=== PATIENT | female | born 1940 | race Caucasian/White ===

== ENCOUNTER 2018-03-25 12:56 | Inpatient (IN) | payer MEDICARE ==
[2018-03-25] MEDS: NORCO 7.5/325 MG TAB PO PRN (16:47)
[2018-03-25] MEDS: XARELTO 10 MG TABLET PO SCH (18:23)
[2018-03-25] MEDS: KEFLEX 500 MG PO SCH (18:23)
[2018-03-25] MEDS: Atrovent 0.5MG NEBULE IH SCH (19:30)
[2018-03-25] MEDS: Oxy-IR 5 MG PO PRN (21:54)
[2018-03-26] MEDS: KEFLEX 500 MG PO SCH ×5 (00:22→23:32)
[2018-03-26] MEDS: NORCO 7.5/325 MG TAB PO PRN ×4 (00:31→20:24)
[2018-03-26] MEDS: Oxy-IR 5 MG PO PRN ×3 (05:17→17:31)
[2018-03-26] MEDS: Spiriva 18 Mcg/Cap Inhaler IH SCH (07:22)
[2018-03-26] MEDS: Atrovent 0.5MG NEBULE IH SCH ×2 (07:22→11:10)
[2018-03-26] MEDS: VITAMIN D PO SCH (08:13)
[2018-03-26] MEDS: Lopressor 50 MG PO SCH (08:13)
[2018-03-26] MEDS: THERAGRAN MULTIVITAMIN PO SCH (08:13)
[2018-03-26] MEDS ORDERED: NON-FORMULARY ITEM (Multivitamin W-Minerals/Lutein [Centrum Silver Tablet] 1 TAB) PO SCH (10:00)
[2018-03-26] MEDS ORDERED: NON-FORMULARY ITEM (Cholecalciferol (Vitamin D3) [Vitamin D3] 1,000 UNIT) PO SCH (10:00)
[2018-03-26] MEDS ORDERED: Aplisol ID SCH (10:00)
--- NOTE | 2018-03-26 10:34 | PCM.HP ---
History of Present Illness - Chief Complaint Chief Complaint: Left Total Knee arthroplasty, Patient is admitted for rehab. History of Present Illness: is a 77 year old female.underwent knee arthroplasty and admitted at [facility] for rehab as swing bed - Review of Systems Constitutional: No Fever, No Chills Eyes: No Symptoms Ears, Nose, & Throat: No Symptoms Respiratory: No Cough, No Short Of Breath Cardiac: No Chest Pain, No Edema, No Syncope Abdominal/Gastrointestinal: No Abdominal Pain, No Nausea, No Vomiting, No Diarrhea Genitourinary Symptoms: No Dysuria Musculoskeletal: No Back Pain, No Neck Pain Skin: No Rash Neurological: No Dizziness, No Focal Weakness, No Sensory Changes Psychological: No Symptoms Endocrine: No Symptoms Hematologic/Lymphatic: No Symptoms Immunological/Allergic: No Symptoms Medications & Allergies Home Medications: Home Medication List Estrogens,Conjugated [Premarin] 0.625 mg PO 3XW 04/08/12 [History Confirmed ] Cephalexin Mh 500 mg [Keflex 500 mg] 500 mg PO Q6H 03/25/18 [History Confirmed 03/25/18] Cholecalciferol (Vitamin D3) [Vitamin D3] 1,000 unit PO DAILY 03/25/18 [History Confirmed 03/25/18] Cyanocobalamin 1000 Mcg/ml [Cyanocobalamin B-12 1000 MCG/ML] 1,000 mcg IM UD 03/25/18 [History Confirmed 03/25/18] Hydrocodone Bit/Acetaminophen [[place] 7.5-325 Tablet] 1 each PO Q6H PRN 03/25/18 [History Confirmed 03/25/18] Ipratropium [place] 0.5 mg [Atrovent 0.5MG NEBULE] 0.5 mg IH QID 03/25/18 [ History Confirmed 03/25/18] Metoprolol Tartrate 50 mg [Lopressor 50 MG] 50 mg PO DAILY 03/25/18 [ History Confirmed 03/25/18] Multivitamin W-Minerals/Lutein [Centrum Silver Tablet] 1 tab PO DAILY 03/25/18 [ History Confirmed 03/25/18] Oxycodone HCl 5 mg Ir [Oxy-IR 5 MG] 5 mg PO Q4H PRN 03/25/18 [History Confirmed 03/25/18] Rivaroxaban 10 mg Tablet [Xarelto 10 mg Tablet] 10 mg PO DAILY 03/25/18 [ History Confirmed 03/25/18] Tiotropium [place] Inhaler [Spiriva 18 Mcg/Cap Inhaler] 1 puff IH DAILY [History Confirmed 03/25/18] Allergies/Adverse Reactions: Allergies Allergy/AdvReac Type Severity Reaction Status Date / Time codeine [Codeine] Allergy Mild Nausea Verified 04/08/12 12:57 cortisone [Cortisone] Allergy Mild Nausea Verified 04/08/12 12:57 epinephrine Allergy Mild palpatation Verified 04/08/12 12:57 s Iodinated Contrast- Oral and Allergy Mild Nausea Verified 04/08/12 12:57 IV Dye [IV Dye, Iodine Containing Contrast ] meperidine HCl [From Demerol] Allergy Mild Nausea Verified 04/08/12 12:57 propoxyphene HCl Allergy Mild Nausea Verified 04/08/12 12:57 [From Darvon] aspirin Allergy Verified 04/08/12 12:57 [From [facility]] diphenhydramine HCl Allergy Verified 04/08/12 12:57 [From [facility]] ibuprofen Allergy Verified 04/08/12 12:57 [From [facility]] tuberculin, purified protein AdvReac Verified 03/26/18 09:42 deriva [From Aplisol] - Past Medical History Past Medical History: Yes Neurological History: Peripheral Neuropathy ENT History: Cataracts Cardiac History: Arrhythmia, Hypertension Respiratory History: COPD, Other Endocrine Medical History: No Pertinent History Musculoskelatal History: Fibromyalgia GI Medical History: Gallbladder Disease History: No Pertinent History Pyscho-Social History: No Pertinent History Reproductive Disorders: No Pertinent History Comment: Lupus, tricuspid valve dysfunction-valve replacement 2007, mitral valve dysfuntion ( needs replaced per pt) - Female History Are you now?: No - Past Surgical History Past Surgical History: Yes Neuro Surgical History: No Pertinent History Cardiac History: Cardiac Catheterization, Other Respiratory Surgery: No Pertinent History GI Surgical History: No Pertinent History Musculskeletal Surgical Hx: Joint Replacement Female Surgical History: Hysterectomy, Lumpectomy Other Surgical History: open heart ticuspid valve repair. right total knee replacement and bilateral foot implants. lumbar surgery x2. denies appendectomy. T&A. bilateral cataract - Social History Smoking Status: Never smoker Exposure to second hand smoke: No Alcohol: None Drug Use: none - Physical Exam Vital Signs: Vital Signs - 24 hr Temp Pulse Resp BP BP Pulse Ox 03/26/18 07:11 97.7 F 99 H 16 126/79 96 03/26/18 07:00 92 H 16 96 03/25/18 20:30 97.6 F 92 H 19 121/71 93 L 03/25/18 20:00 97.6 F 92 H 19 121/71 93 L 03/25/18 19:30 92 H 18 97 03/25/18 17:45 108 H 18 94 L 03/25/18 14:54 98.3 F 110 H 20 133/81 93 L 03/25/18 14:53 98.3 F 110 H 20 133/81 93 L General Appearance: no apparent distress, alert Neurologic Exam: alert, oriented x 3, cooperative, normal mood/affect, nml cerebellar function, nml station & gait, sensation nml, No motor deficits Eye Exam: PERRL/EOMI, eyes nml inspection Ears, Nose, Throat Exam: normal ENT inspection, TMs normal, pharynx normal, moist mucous membranes Neck Exam: normal inspection, non-tender, supple, full range of motion Respiratory Exam: normal breath sounds, lungs clear, No respiratory distress Cardiovascular Exam: regular rate/rhythm, normal heart sounds, normal peripheral pulses Gastrointestinal/Abdomen Exam: soft, normal bowel sounds, No tenderness, No mass Back Exam: normal inspection, normal range of motion, No CVA tenderness, No vertebral tenderness Extremity Exam: normal inspection, normal range of motion, pelvis stable Skin Exam: normal color, warm, dry, No rash Lymphatic Exam: No adenopathy Results - Other Procedures and Tests Respiratory Therapy 03/25/18 19:00 Respiratory Nebulizer 07,11,15,19 03/26/18 07:00 Respiratory MDI 0700 Assessment/Plan (1) History of arthroplasty of left knee Current Visit: Yes Status: Acute Code(s): Z96.652 - PRESENCE OF LEFT ARTIFICIAL KNEE JOINT
[2018-03-26] MEDS ORDERED: Atrovent 0.5MG NEBULE IH PRN (11:14)
[2018-03-26] MEDS: XARELTO 10 MG TABLET PO SCH (17:21)
[2018-03-27] MEDS: Oxy-IR 5 MG PO PRN ×5 (01:38→23:30)
[2018-03-27] MEDS: NORCO 7.5/325 MG TAB PO PRN ×2 (06:10→17:41)
[2018-03-27] MEDS: KEFLEX 500 MG PO SCH ×4 (06:11→23:30)
[2018-03-27] MEDS: VITAMIN D PO SCH (10:09)
[2018-03-27] MEDS: Lopressor 50 MG PO SCH (10:09)
[2018-03-27] MEDS: THERAGRAN MULTIVITAMIN PO SCH (10:09)
[2018-03-27] MEDS: Spiriva 18 Mcg/Cap Inhaler IH SCH (11:01)
--- NOTE | 2018-03-27 11:56 | PCM.NOTE ---
Date and Time: 03/27/18 1156 Subjective Assessment: doing ok - Review of Systems Constitutional: No Fever, No Chills Eyes: No Symptoms Ears, Nose, & Throat: No Symptoms Respiratory: No Cough, No Short Of Breath Cardiac: No Chest Pain, No Edema, No Syncope Abdominal/Gastrointestinal: No Abdominal Pain, No Nausea, No Vomiting, No Diarrhea Genitourinary Symptoms: No Dysuria Musculoskeletal: No Back Pain, No Neck Pain Skin: No Rash Neurological: No Dizziness, No Focal Weakness, No Sensory Changes Psychological: No Symptoms Endocrine: No Symptoms Hematologic/Lymphatic: No Symptoms Immunological/Allergic: No Symptoms Objective Exam General Appearance: no apparent distress, alert Neurologic Exam: alert, oriented x 3, cooperative, normal mood/affect, nml cerebellar function, sensation nml, No motor deficits Skin Exam: normal color, warm, dry Eye Exam: PERRL, EOMI, eyes nml inspection Ears, Nose, Throat Exam: normal ENT inspection, pharynx normal, moist mucous membranes Neck Exam: normal inspection, non-tender, supple, full range of motion Respiratory Exam: normal breath sounds, lungs clear, No respiratory distress Cardiovascular Exam: regular rate/rhythm, normal heart sounds Gastrointestinal/Abdomen Exam: soft, No tenderness, No mass Extremity Exam: normal inspection, normal range of motion Back Exam: normal inspection, normal range of motion, No CVA tenderness, No vertebral tenderness Pelvic Exam: deferred Rectal Exam: deferred OBJECTIVE DATA Vital Signs: Vital Signs - 24 hr Temp Pulse Resp BP Pulse Ox 03/27/18 07:21 98.2 F 87 16 150/66 96 03/27/18 07:00 75 16 98 03/26/18 19:58 89 16 96 03/26/18 19:40 98.2 F 91 H 98 H 119/56 20 L Pain Assessment - Last Documented Pain Intensity 3 Pain Scale Used 0-10 Pain Scale Intake and Output: Intake & Output 03/24/18 03/25/18 03/26/18 03/27/18 11:59 11:59 11:59 11:59 Intake Total 1260 1510 Balance 1260 1510 Weight 63.5 kg Assessment/Plan (1) History of arthroplasty of left knee Current Visit: Yes Status: Acute Code(s): Z96.652 - PRESENCE OF LEFT ARTIFICIAL KNEE JOINT
[2018-03-27] MEDS: XARELTO 10 MG TABLET PO SCH (17:41)
[2018-03-28] MEDS: NORCO 7.5/325 MG TAB PO PRN ×4 (02:30→23:43)
[2018-03-28] MEDS: KEFLEX 500 MG PO SCH ×4 (05:08→23:39)
[2018-03-28] MEDS: Spiriva 18 Mcg/Cap Inhaler IH SCH (07:23)
[2018-03-28] MEDS: Lopressor 50 MG PO SCH (08:51)
[2018-03-28] MEDS: Oxy-IR 5 MG PO PRN ×3 (08:51→20:48)
[2018-03-28] MEDS: VITAMIN D PO SCH (08:56)
[2018-03-28] MEDS: PREMARIN PO SCH (08:56)
[2018-03-28] MEDS: THERAGRAN MULTIVITAMIN PO SCH ×2 (08:56→09:00)
[2018-03-28] MEDS ORDERED: Cyanocobalamin B-12 1000 MCG/ML IM SCH (10:00)
--- NOTE | 2018-03-28 11:53 | PCM.NOTE ---
Date and Time: 03/28/18 1152 Subjective Assessment: doing better - Review of Systems Constitutional: No Fever, No Chills Eyes: No Symptoms Ears, Nose, & Throat: No Symptoms Respiratory: No Cough, No Short Of Breath Cardiac: No Chest Pain, No Edema, No Syncope Abdominal/Gastrointestinal: No Abdominal Pain, No Nausea, No Vomiting, No Diarrhea Genitourinary Symptoms: No Dysuria Musculoskeletal: No Back Pain, No Neck Pain Skin: No Rash Neurological: No Dizziness, No Focal Weakness, No Sensory Changes Psychological: No Symptoms Endocrine: No Symptoms Hematologic/Lymphatic: No Symptoms Immunological/Allergic: No Symptoms Objective Exam General Appearance: no apparent distress, alert Neurologic Exam: alert, oriented x 3, cooperative, normal mood/affect, nml cerebellar function, sensation nml, No motor deficits Skin Exam: normal color, warm, dry Eye Exam: PERRL, EOMI, eyes nml inspection Ears, Nose, Throat Exam: normal ENT inspection, pharynx normal, moist mucous membranes Neck Exam: normal inspection, non-tender, supple, full range of motion Respiratory Exam: normal breath sounds, lungs clear, No respiratory distress Cardiovascular Exam: regular rate/rhythm, normal heart sounds Gastrointestinal/Abdomen Exam: soft, No tenderness, No mass Extremity Exam: normal inspection, normal range of motion Back Exam: normal inspection, normal range of motion, No CVA tenderness, No vertebral tenderness Pelvic Exam: deferred Rectal Exam: deferred OBJECTIVE DATA Vital Signs: Vital Signs - 24 hr Temp Pulse Resp BP Pulse Ox 03/28/18 07:23 96 H 16 98 03/28/18 06:55 97.6 F 80 16 172/77 98 03/27/18 20:36 94 H 16 7 L 03/27/18 20:00 98.8 F 83 20 135/61 97 Pain Assessment - Last Documented Pain Intensity 5 Pain Scale Used 0-10 Pain Scale Intake and Output: Intake & Output 03/25/18 03/26/18 03/27/18 03/28/18 11:59 11:59 11:59 11:59 Intake Total 1260 1510 1210 Balance 1260 1510 1210 Weight 63.5 kg 63.5 kg Assessment/Plan (1) History of arthroplasty of left knee Current Visit: Yes Status: Acute Code(s): Z96.652 - PRESENCE OF LEFT ARTIFICIAL KNEE JOINT
[2018-03-28] MEDS: XARELTO 10 MG TABLET PO SCH (18:19)
[2018-03-29] MEDS: Oxy-IR 5 MG PO PRN ×4 (03:22→19:59)
[2018-03-29] MEDS: KEFLEX 500 MG PO SCH ×3 (05:55→17:16)
[2018-03-29] MEDS: Lopressor 50 MG PO SCH (05:56)
[2018-03-29] MEDS: Spiriva 18 Mcg/Cap Inhaler IH SCH (07:24)
[2018-03-29] MEDS: NORCO 7.5/325 MG TAB PO PRN ×4 (08:08→21:25)
[2018-03-29] MEDS: THERAGRAN MULTIVITAMIN PO SCH (09:15)
[2018-03-29] MEDS: VITAMIN D PO SCH (09:15)
--- NOTE | 2018-03-29 12:52 | PCM.NOTE ---
Date and Time: 03/29/18 1251 Subjective Assessment: doing better - Review of Systems Constitutional: No Fever, No Chills Eyes: No Symptoms Ears, Nose, & Throat: No Symptoms Respiratory: No Cough, No Short Of Breath Cardiac: No Chest Pain, No Edema, No Syncope Abdominal/Gastrointestinal: No Abdominal Pain, No Nausea, No Vomiting, No Diarrhea Genitourinary Symptoms: No Dysuria Musculoskeletal: No Back Pain, No Neck Pain Skin: No Rash Neurological: No Dizziness, No Focal Weakness, No Sensory Changes Psychological: No Symptoms Endocrine: No Symptoms Hematologic/Lymphatic: No Symptoms Immunological/Allergic: No Symptoms Objective Exam General Appearance: no apparent distress, alert Neurologic Exam: alert, oriented x 3, cooperative, normal mood/affect, nml cerebellar function, sensation nml, No motor deficits Skin Exam: normal color, warm, dry Eye Exam: PERRL, EOMI, eyes nml inspection Ears, Nose, Throat Exam: normal ENT inspection, pharynx normal, moist mucous membranes Neck Exam: normal inspection, non-tender, supple, full range of motion Respiratory Exam: normal breath sounds, lungs clear, No respiratory distress Cardiovascular Exam: regular rate/rhythm, normal heart sounds Gastrointestinal/Abdomen Exam: soft, No tenderness, No mass Extremity Exam: normal inspection, normal range of motion Back Exam: normal inspection, normal range of motion, No CVA tenderness, No vertebral tenderness Pelvic Exam: deferred Rectal Exam: deferred OBJECTIVE DATA Vital Signs: Vital Signs - 24 hr Temp Pulse Resp BP Pulse Ox 03/29/18 07:00 97.9 F 68 16 137/66 98 03/28/18 20:00 98.6 F 83 18 163/72 95 Pain Assessment - Last Documented Pain Intensity 4 Pain Scale Used 0-10 Pain Scale Intake and Output: Intake & Output 03/27/18 03/28/18 03/29/18 03/30/18 11:59 11:59 11:59 11:59 Intake Total 1510 1210 1320 Balance 1510 1210 1320 Weight 63.5 kg 64 kg Assessment/Plan (1) History of arthroplasty of left knee Current Visit: Yes Status: Acute Code(s): Z96.652 - PRESENCE OF LEFT ARTIFICIAL KNEE JOINT
[2018-03-29] MEDS: XARELTO 10 MG TABLET PO SCH (17:16)
[2018-03-30] MEDS: KEFLEX 500 MG PO SCH ×4 (00:13→17:26)
[2018-03-30] MEDS: Oxy-IR 5 MG PO PRN ×4 (02:07→19:42)
[2018-03-30] MEDS: NORCO 7.5/325 MG TAB PO PRN ×3 (05:33→15:44)
[2018-03-30] MEDS: Lopressor 50 MG PO SCH (05:33)
[2018-03-30] MEDS: Spiriva 18 Mcg/Cap Inhaler IH SCH (07:46)
[2018-03-30] MEDS: VITAMIN D PO SCH (10:17)
[2018-03-30] MEDS: PREMARIN PO SCH (10:17)
--- NOTE | 2018-03-30 15:38 | PCM.NOTE ---
Date and Time: 03/30/18 1537 Subjective Assessment: doing better - Review of Systems Constitutional: No Fever, No Chills Eyes: No Symptoms Ears, Nose, & Throat: No Symptoms Respiratory: No Cough, No Short Of Breath Cardiac: No Chest Pain, No Edema, No Syncope Abdominal/Gastrointestinal: No Abdominal Pain, No Nausea, No Vomiting, No Diarrhea Genitourinary Symptoms: No Dysuria Musculoskeletal: No Back Pain, No Neck Pain Skin: No Rash Neurological: No Dizziness, No Focal Weakness, No Sensory Changes Psychological: No Symptoms Endocrine: No Symptoms Hematologic/Lymphatic: No Symptoms Immunological/Allergic: No Symptoms Objective Exam General Appearance: no apparent distress, alert Neurologic Exam: alert, oriented x 3, cooperative, normal mood/affect, nml cerebellar function, sensation nml, No motor deficits Skin Exam: normal color, warm, dry Eye Exam: PERRL, EOMI, eyes nml inspection Ears, Nose, Throat Exam: normal ENT inspection, pharynx normal, moist mucous membranes Neck Exam: normal inspection, non-tender, supple, full range of motion Respiratory Exam: normal breath sounds, lungs clear, No respiratory distress Cardiovascular Exam: regular rate/rhythm, normal heart sounds Gastrointestinal/Abdomen Exam: soft, No tenderness, No mass Extremity Exam: normal inspection, normal range of motion Back Exam: normal inspection, normal range of motion, No CVA tenderness, No vertebral tenderness Pelvic Exam: deferred Rectal Exam: deferred OBJECTIVE DATA Vital Signs: Vital Signs - 24 hr Temp Pulse Resp BP Pulse Ox 03/30/18 07:46 75 18 95 03/30/18 07:35 97.6 F 69 16 126/57 97 03/29/18 20:00 97.7 F 127 H 19 133/62 94 L 03/29/18 19:50 90 16 98 Pain Assessment - Last Documented Pain Intensity 7 Pain Scale Used 0-10 Pain Scale Intake and Output: Intake & Output 03/28/18 03/29/18 03/30/18 03/31/18 11:59 11:59 11:59 11:59 Intake Total 1210 1320 1440 240 Balance 1210 1320 1440 240 Weight 63.5 kg 64 kg Assessment/Plan (1) History of arthroplasty of left knee Current Visit: Yes Status: Acute Assessment & Plan: Chief Complaint Diagnosis Left Total Knee arthroplasty, Patient is admitted for rehab. Allergies Allergy/AdvReac Type Severity Reaction Status Date / Time codeine [Codeine] Allergy Mild Nausea Verified 04/08/12 12:57 cortisone [Cortisone] Allergy Mild Nausea Verified 04/08/12 12:57 epinephrine Allergy Mild palpatation Verified 04/08/12 12:57 s Iodinated Contrast- Oral and Allergy Mild Nausea Verified 04/08/12 12:57 IV Dye [IV Dye, Iodine Containing Contrast ] meperidine HCl [From Demerol] Allergy Mild Nausea Verified 04/08/12 12:57 propoxyphene HCl Allergy Mild Nausea Verified 04/08/12 12:57 [From Darvon] aspirin Allergy Verified 04/08/12 12:57 [From [facility]] diphenhydramine HCl Allergy Verified 04/08/12 12:57 [From [facility]] ibuprofen Allergy Verified 04/08/12 12:57 [From [facility]] tuberculin, purified protein AdvReac Verified 03/26/18 09:42 deriva [From Aplisol] Vital Signs (Last 24 hours) Temp Pulse Resp BP Pulse Ox 03/30/18 07:46 75 18 95 03/30/18 07:35 97.6 F 69 16 126/57 97 03/29/18 20:00 97.7 F 127 H 19 133/62 94 L 03/29/18 19:50 90 16 98 Home Medications Medication Instructions Recorded Confirmed Last Taken Type Cephalexin Mh 500 mg [Keflex 500 500 mg PO Q6H 03/25/18 03/25/18 03/25/18 History mg] Cholecalciferol (Vitamin D3) 1,000 unit PO DAILY 03/25/18 03/25/18 03/25/18 History [Vitamin D3] Cyanocobalamin 1000 Mcg/ml 1,000 mcg IM UD 03/25/18 03/25/18 03/14/18 History [Cyanocobalamin B-12 1000 MCG/ML] Hydrocodone Bit/Acetaminophen 1 each PO Q4H PRN 03/25/18 03/29/18 03/25/18 History [[place] 7.5-325 Tablet] Ipratropium [place] 0.5 mg 0.5 mg IH QID 03/25/18 03/25/18 03/25/18 History [Atrovent 0.5MG NEBULE] Metoprolol Tartrate 50 mg 50 mg PO DAILY 03/25/18 03/25/18 03/25/18 History [Lopressor 50 MG] Multivitamin W-Minerals/Lutein 1 tab PO DAILY 03/25/18 03/25/18 03/25/18 History [Centrum Silver Tablet] Oxycodone HCl 5 mg Ir [Oxy-IR 5 5 mg PO Q4H PRN 03/25/18 03/25/18 03/25/18 History MG] Rivaroxaban 10 mg Tablet 10 mg PO DAILY 03/25/18 03/25/18 03/24/18 History [Xarelto 10 mg Tablet] Tiotropium [place] Inhaler 1 puff IH DAILY 03/25/18 03/25/18 03/25/18 History [Spiriva 18 Mcg/Cap Inhaler] Current Medications Generic Name Dose Route Start Last Admin Trade Name Freq PRN Reason Stop Dose Admin Hydrocodone Bitart/Acetaminophen 1 tab 03/29/18 13:09 03/30/18 10:21 [place] 7.5/325 Mg Tab PO 04/03/18 13:08 1 tab Q4H PRN PRN Administration PAIN Cephalexin HCl 500 mg 03/25/18 18:00 03/30/18 11:59 Keflex 500 Mg PO 04/24/18 17:59 500 mg Q6HT ROGER Administration Cholecalciferol 1,000 unit 03/26/18 10:00 03/30/18 10:17 Vitamin D PO 04/25/18 09:59 1,000 unit DAILY ROGER Administration Cyanocobalamin 1,000 mcg 03/28/18 10:00 03/28/18 10:55 Cyanocobalamin B-12 1000 Mcg/Ml IM 04/27/18 09:59 1,000 mcg Q14D ROGER Administration Estrogens Conjugated 0.625 mg 03/28/18 10:00 03/30/18 10:17 Premarin PO 04/27/18 09:59 0.625 mg MoWeFr@1000 ROGER Administration Ipratropium [place] 0.5 mg 03/26/18 11:14 03/26/18 19:56 Atrovent 0.5mg Nebule IH 04/25/18 11:11 0.5 mg PRN PRN Administration SHORTNESS OF BREATH/WHEEZING Metoprolol Tartrate 50 mg 03/29/18 06:00 03/30/18 05:33 Lopressor 50 Mg PO 04/25/18 09:59 50 mg 0600 ROGER Administration Oxycodone HCl 5 mg 03/25/18 15:43 03/30/18 12:12 Oxy-Ir 5 Mg PO 03/30/18 15:42 5 mg Q4H PRN PRN Administration PAIN Rivaroxaban 10 mg 03/25/18 18:00 03/29/18 17:16 Xarelto 10 Mg Tablet PO 04/24/18 17:59 10 mg DAILY@1800 ROGER Administration Tiotropium [place] 1 ea 03/26/18 07:00 03/30/18 07:46 Spiriva 18 Mcg/Cap Inhaler IH 04/25/18 06:59 1 ea DAILY@0700 ROGER Administration Discontinued Medications Generic Name Dose Route Start Last Admin Trade Name Freq PRN Reason Stop Dose Admin Hydrocodone Bitart/Acetaminophen 1 tab 03/25/18 15:43 03/29/18 13:09 [place] 7.5/325 Mg Tab PO 03/30/18 15:42 1 tab Q6H PRN PRN Administration PAIN Ipratropium [place] 0.5 mg 03/25/18 19:00 03/26/18 11:10 Atrovent 0.5mg Nebule IH 04/24/18 18:59 Not Given QIDRT ROGER Metoprolol Tartrate 50 mg 03/26/18 10:00 03/28/18 08:51 Lopressor 50 Mg PO 04/25/18 09:59 50 mg DAILY ROGER Administration Multivitamins Therapeutic 1 tab 03/26/18 10:00 03/29/18 09:15 Theragran Multivitamin PO 04/25/18 09:59 1 tab DAILY ROGER Administration Tuberculin PPD 5 unit 03/26/18 10:00 03/26/18 09:41 Aplisol ID 03/26/18 10:01 Not Given DAILY ROGER Tuberculin PPD 5 unit 04/06/18 10:00 Aplisol ID 04/06/18 10:01 DAILY ROGER Intake & Output (Last 24 hours) 03/28/18 03/29/18 03/30/18 03/31/18 11:59 11:59 11:59 11:59 Intake Total 1210 1320 1440 240 Balance 1210 1320 1440 240 Weight 63.5 kg 64 kg Orders (Last 24 hours) Category Date Time Status BMP Routine Lab 04/08/18 04:00 Ordered Tuberculin,Purif.prot.deriv. [Aplisol] Med 04/06/18 10:00 Discontinued 5 unit ID DAILY Patient Care Notes (Last 24 hours) 03/29/18 20:40 Nursing Note by Lay Gross Patient refused snack. Initialized on 03/29/18 20:40 - END OF NOTE Code(s): Z96.652 - PRESENCE OF LEFT ARTIFICIAL KNEE JOINT
[2018-03-30] MEDS: XARELTO 10 MG TABLET PO SCH (17:26)
[2018-03-31] MEDS: KEFLEX 500 MG PO SCH ×5 (00:16→23:42)
[2018-03-31] MEDS: NORCO 7.5/325 MG TAB PO PRN ×3 (00:16→16:04)
[2018-03-31] MEDS: Lopressor 50 MG PO SCH (05:18)
[2018-03-31] MEDS: Oxy-IR 5 MG PO PRN ×4 (05:18→20:26)
[2018-03-31] MEDS: Spiriva 18 Mcg/Cap Inhaler IH SCH (07:28)
[2018-03-31] MEDS: VITAMIN D PO SCH (08:21)
--- NOTE | 2018-03-31 12:01 | PCM.NOTE ---
Date and Time: 03/31/18 1200 Subjective Assessment: doing ok - Review of Systems Constitutional: No Fever, No Chills Eyes: No Symptoms Ears, Nose, & Throat: No Symptoms Respiratory: No Cough, No Short Of Breath Cardiac: No Chest Pain, No Edema, No Syncope Abdominal/Gastrointestinal: No Abdominal Pain, No Nausea, No Vomiting, No Diarrhea Genitourinary Symptoms: No Dysuria Musculoskeletal: No Back Pain, No Neck Pain Skin: No Rash Neurological: No Dizziness, No Focal Weakness, No Sensory Changes Psychological: No Symptoms Endocrine: No Symptoms Hematologic/Lymphatic: No Symptoms Immunological/Allergic: No Symptoms Objective Exam General Appearance: no apparent distress, alert Neurologic Exam: alert, oriented x 3, cooperative, normal mood/affect, nml cerebellar function, sensation nml, No motor deficits Skin Exam: normal color, warm, dry Eye Exam: PERRL, EOMI, eyes nml inspection Ears, Nose, Throat Exam: normal ENT inspection, pharynx normal, moist mucous membranes Neck Exam: normal inspection, non-tender, supple, full range of motion Respiratory Exam: normal breath sounds, lungs clear, No respiratory distress Cardiovascular Exam: regular rate/rhythm, normal heart sounds Gastrointestinal/Abdomen Exam: soft, No tenderness, No mass Extremity Exam: normal inspection, normal range of motion Back Exam: normal inspection, normal range of motion, No CVA tenderness, No vertebral tenderness Pelvic Exam: deferred Rectal Exam: deferred OBJECTIVE DATA Vital Signs: Vital Signs - 24 hr Temp Pulse Resp BP Pulse Ox 03/31/18 08:00 98.3 F 77 16 135/64 94 L 03/31/18 07:00 77 16 94 L 03/30/18 20:03 94 H 14 93 L 03/30/18 20:00 98.3 F 97 H 18 135/64 97 Pain Assessment - Last Documented Pain Intensity 7 Pain Scale Used 0-10 Pain Scale Intake and Output: Intake & Output 03/29/18 03/30/18 03/31/18 04/01/18 11:59 11:59 11:59 11:59 Intake Total 1320 1440 480 Balance 1320 1440 480 Weight 64 kg Assessment/Plan (1) History of arthroplasty of left knee Current Visit: Yes Status: Acute Code(s): Z96.652 - PRESENCE OF LEFT ARTIFICIAL KNEE JOINT
[2018-03-31] MEDS: XARELTO 10 MG TABLET PO SCH (17:36)
[2018-04-01] MEDS: NORCO 7.5/325 MG TAB PO PRN ×4 (01:39→23:02)
[2018-04-01] MEDS: Lopressor 50 MG PO SCH (05:45)
[2018-04-01] MEDS: KEFLEX 500 MG PO SCH ×4 (05:45→23:42)
[2018-04-01] MEDS: Spiriva 18 Mcg/Cap Inhaler IH SCH (07:10)
[2018-04-01] MEDS: PREMARIN PO SCH (08:02)
[2018-04-01] MEDS: VITAMIN D PO SCH (08:02)
--- NOTE | 2018-04-01 08:51 | XRAY ---
Indication: Cough. Positive TB test. Comparison: April 11, 2012. PA/lateral chest again hyperinflated and clear. Heart and mediastinal structures within normal limits. Again a few tiny mediastinal calcified nodes. Bony thorax intact again with mild osteopenia, degenerative changes, and pectus carinutum deformity. Impression: Nonacute chest with chronic features.
[2018-04-01] MEDS: Oxy-IR 5 MG PO PRN ×2 (15:30→20:12)
--- NOTE | 2018-04-01 15:36 | PROG NOTE ---
DATE: 04/01/2018 Chart is reviewed and events noted. At the time of this evaluation the patient is alert, awake and comfortable. She just returned from orthopedic surgeon's office visit earlier today. She states that she has been ambulating with minimal left knee discomfort otherwise feeling well. Denies shortness of breath and cough. Denies any other symptoms at all except diarrhea a couple of times. Appears comfortable. PHYSICAL EXAMINATION: VITAL SIGNS: Blood pressure 117/60, heart rate 74, respiratory rate 20, temperature 98.3F. Oxygen saturation 97% on room air. HEENT: Normocephalic. No pallor or icterus is noted. NECK: No JVD is present. CVS: S1, S2 present. RESPIRATORY: Breath sounds are bilaterally diminished and clear to auscultation. ABDOMEN: Soft, nontender. NEURO: She is alert, oriented x3. EXTREMITIES: No edema on right lower extremity. Left lower extremity ice pack/dressing is present. 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 Medications were reviewed. ASSESSMENT: A 77 year old woman with impression: 1) Status post left below knee amputation. 2) History of chronic obstructive pulmonary disease. 3) History of fibromyalgia. 4) History of cardiac arrhythmia. 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 PLAN: Continue PRN analgesics. Postoperative care per orthopedic recommendations. Continue PT as tolerated. The patient states that she was previously treated for TB and has completed one year of treatment. Also as per patient and family, due to that she does not receive PPD. With regards to her current QuantiFERON test at this time, the patient does not clinically report any signs or symptoms of shortness of breath, weight loss, coughing or hemoptysis or unexplained night sweats. QuantiFERON positive test appears to be likely related to prior history of TB. At this time she remains asymptomatic. Will obtain Clostridium difficile. The patient's clinical condition, work-up results and plan of management were discussed. Plan of management was discussed with patient and family. They seem to be in understanding and agreement. Discussed with hospice case manager, Maribel.
[2018-04-01] MEDS: XARELTO 10 MG TABLET PO SCH (17:51)
[2018-04-01 19:48] LABS: 027 TOX PROD PRESUMPTIVE NEGATIVE (NEGATIVE)
[2018-04-01 19:49] LABS: TOXIGENIC C. DIFF ORG POSITIVE (NEGATIVE)
[2018-04-01] MEDS ORDERED: Flagyl 500 MG ONE (21:01)
[2018-04-01] MEDS ORDERED: Flagyl 500 MG PO SCH (22:00)
[2018-04-01] MEDS: Flagyl 500 MG PO SCH (22:50)
[2018-04-02] MEDS: Oxy-IR 5 MG PO PRN ×3 (04:34→20:14)
[2018-04-02] MEDS: Lopressor 50 MG PO SCH (05:29)
[2018-04-02] MEDS: KEFLEX 500 MG PO SCH ×2 (05:29→11:57)
[2018-04-02] MEDS: Flagyl 500 MG PO SCH ×3 (05:29→21:42)
[2018-04-02] MEDS: Spiriva 18 Mcg/Cap Inhaler IH SCH (07:36)
[2018-04-02] MEDS: NORCO 7.5/325 MG TAB PO PRN ×3 (07:52→22:34)
[2018-04-02] MEDS: VITAMIN D PO SCH (07:52)
[2018-04-02 14:25] LABS: ALKALINE PHOSPHATASE 72 U/L (38-126); ANION GAP 11.8 MEQ/L (5-15); BLOOD UREA NITROGEN 18 mg/dL (7-17); CHLORIDE 100 mmol/L (98-107); Calcium 9.9 mg/dL (8.4-10.2); Carbon Dioxide 29 mmol/L (22-30); Creatinine 1 0.89 mg/dL (0.52-1.04); Glucose 113 mg/dL (74-106); LIPASE 247 U/L (23-300); Potassium 3.8 mmol/L (3.5-5.1); SGOT/AST 20 U/L (14-36); SGPT/ALT 11 U/L (0-35); SODIUM 136 mmol/L (137-145); Total Protein 6.9 g/dL (6.3-8.2)
[2018-04-02 14:28] LABS: BASOPHIL % 0.3 % (0.0-0.4); Basophil (Absolute #) 0.03 (0-0.4); Eosinophil % 1.8 % (0.00-5.0); Eosinophil (Absolute #) 0.19 (0-0.5); Granulocyte Absolute (ANC) 7.44 (1.4-6.9); Granulocytes % 72.3 % (36.0-66.0); Hemoglobin 11.3 gm/dl (12.0-16.0); Lymphocyte (Absolute #) 1.72 (1.0-4.6); Lymphocytes % 16.7 % (24.0-44.0); Mean Corpuscular Hgb Concent. 32.3 g/dl (32-36); Mean Platelet Volume 9.5 fl (6-9.5); Monocyte (Absolute #) 0.92 (0.0-1.3); Monocytes % 8.9 % (0.0-12.0); Platelet Count 391 K/mm3 (150-450); Red Cell Distribution Width 14.9 % (11.5-14.0); White Blood Count 10.3 K/mm3 (4.0-10.5)
[2018-04-02 14:38] LABS: Mean Corpuscular Hemoglobin 32.2 pg (26-32)
[2018-04-02] MEDS: XARELTO 10 MG TABLET PO SCH (17:19)
--- NOTE | 2018-04-02 20:26 | XRAY ---
Indication: Left rib pain. No known injury. Comparison: None 2 views of the left ribs demonstrate mild multilevel spinal degenerative spondylosis, mild double curvature scoliosis, sternotomy wires, mild left shoulder degenerative arthropathy, and L5 laminectomy. No other bony, articular, or soft tissue abnormalities. Comment: Preliminary interpretation was made by [facility]. No critical discrepancy.
[2018-04-03] MEDS: Oxy-IR 5 MG PO PRN ×3 (01:14→20:21)
[2018-04-03] MEDS: Flagyl 500 MG PO SCH ×4 (05:06→23:35)
[2018-04-03] MEDS: NORCO 7.5/325 MG TAB PO PRN ×4 (05:06→23:34)
[2018-04-03] MEDS: Lopressor 50 MG PO SCH (05:06)
[2018-04-03] MEDS: Spiriva 18 Mcg/Cap Inhaler IH SCH (07:19)
[2018-04-03] MEDS: VITAMIN D PO SCH (09:44)
[2018-04-03] MEDS: XARELTO 10 MG TABLET PO SCH (17:36)
[2018-04-04] MEDS: Oxy-IR 5 MG PO PRN ×4 (04:54→20:52)
[2018-04-04] MEDS: Flagyl 500 MG PO SCH ×3 (06:45→21:39)
[2018-04-04] MEDS: Lopressor 50 MG PO SCH (06:45)
[2018-04-04] MEDS: Spiriva 18 Mcg/Cap Inhaler IH SCH (07:04)
--- NOTE | 2018-04-04 09:51 | PROG NOTE ---
DATE: 04/02/2018 Chart is reviewed and events noted. At the time of this evaluation the patient is alert, awake and comfortable. States she has been ambulating well with minimal left knee discomfort. She complains of left ribs/left upper abdominal area pain. She has been tolerating diet. PHYSICAL EXAMINATION: VITAL SIGNS: Blood pressure 107/59, heart rate 75, respiratory rate 18, temperature 97.7F. Oxygen saturation 97% on room air. HEENT: Pallor is present. No icterus is noted. NECK: No JVD is present. CVS: S1, S2 present. RESPIRATORY: Breath sounds are diminished and clear to auscultation. Mild left rib tenderness (lower lateral present). ABDOMEN: Soft, mild left upper quadrant tenderness present. No guarding or rigidity is present. NEURO: She is alert, oriented x3. EXTREMITIES: No edema on bilateral lower extremities. Dressing is present on left knee area. LABORATORY DATA AND TESTS: Clostridium difficile from 04/01/2018 is positive. Medications were reviewed. ASSESSMENT: A 77 year old woman with impression: 1) Status post arthroplasty of left knee. 2) Clostridium difficile colitis. 3) History of fibromyalgia. 4) Cardiac arrhythmia, by history. 5) Chronic obstructive pulmonary disease. 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 7) Left rib pain. 8) Left upper abdominal pain. PLAN: Continue PRN analgesics, continue PT/OT as tolerated. Flagyl was added last night. Continue isolation. The patient states she declined to take Keflex yesterday. I advised her that we will discuss that with her surgeon. The plan was discussed with patient. With regards to patient's symptoms of left rib pain will obtain left rib x-rays in regards to her abdominal pain. Will obtain baseline blood work. If symptoms persist will likely obtain CT abdomen and pelvis. The plan was discussed with the patient and her family. The patient's clinical condition, work-up results and plan of management as outlined was discussed with patient and family. They seem to be in understanding and agreement.
[2018-04-04] MEDS: PREMARIN PO SCH (10:11)
[2018-04-04] MEDS: VITAMIN D PO SCH (10:11)
[2018-04-04] MEDS: NORCO 7.5/325 MG TAB PO PRN ×3 (12:13→22:51)
[2018-04-04] MEDS ORDERED: MAALOX ES 30 ML UNIT DOSE PO PRN (14:35)
[2018-04-04] MEDS: Protonix 40MG Tablet PO SCH (15:18)
[2018-04-04] MEDS: XARELTO 10 MG TABLET PO SCH (18:28)
[2018-04-05] MEDS: Oxy-IR 5 MG PO PRN ×4 (01:27→19:38)
[2018-04-05] MEDS: Lopressor 50 MG PO SCH (05:12)
[2018-04-05] MEDS: Flagyl 500 MG PO SCH ×3 (05:12→21:28)
[2018-04-05] MEDS: NORCO 7.5/325 MG TAB PO PRN ×4 (05:12→21:28)
[2018-04-05] MEDS: Spiriva 18 Mcg/Cap Inhaler IH SCH (07:31)
--- NOTE | 2018-04-05 08:11 | PROG NOTE ---
DATE: 04/04/2018 Chart is reviewed and events noted. At the time of this evaluation the patient is alert, awake and comfortable. She states she was having some increasing left knee pain after she worked very hard PT today. She is still having minimal left upper abdominal pain. She complains of diarrhea. She denies any other complaints. PHYSICAL EXAMINATION: VITAL SIGNS: Blood pressure 142/65, heart rate 91, respiratory rate 18, temperature 97.4F. Oxygen saturation 97% on room air. HEENT: Normocephalic. Pallor is present. No icterus is noted. NECK: No JVD is present. CVS: S1, S2 present. RESPIRATORY: Breath sounds are bilaterally diminished. ABDOMEN: Soft, minimal left upper quadrant tenderness present. No guarding or rigidity is present. NEURO: She is alert, oriented x3. EXTREMITIES: No edema on bilateral lower extremities. Dressing is present on left knee area. LABORATORY DATA AND TESTS: Labs from 04/02/2018 were notable for CBC with white blood cell 10.3, hemoglobin 11.3, hematocrit 35, PLT 391,000. CMP from 04/02/2018 showed BUN 18, creatinine 0.89, glucose 113. Liver function tests were unremarkable. Lipase within normal limits. Rib x-ray from 04/02/2018 mild multilevel spinal degenerative spondylosis, mild double curvature scoliosis, sternotomy wires, left shoulder degenerative arthropathy and L5 laminectomy. No other bony, articular or soft tissue abnormalities. Medications were reviewed. ASSESSMENT: A 77 year old woman with impression: 1) Status post arthroscopy of left knee. 2) Clostridium difficile colitis. 3) Left rib pain, improved. 4) Left upper abdominal pain, mild. 5) Fibromyalgia. 6) History of cardiac arrhythmia. 7) Chronic obstructive pulmonary disease. 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 The patient is asymptomatic. PLAN: Continue PT. Continue PRN analgesics. Continue Flagyl. Addition of proton pump inhibitor. I discussed with the patient regarding obtaining additional work up including but not limited to CT abdomen and pelvis for her abdominal pain. The patient wishes to hold off on those at this time. The plan was discussed with the patient. She seems to be in understanding and agreement.
[2018-04-05] MEDS: VITAMIN D PO SCH (08:29)
[2018-04-05] MEDS: Protonix 40MG Tablet PO SCH (08:29)
[2018-04-05] MEDS: XARELTO 10 MG TABLET PO SCH (17:06)
[2018-04-06] MEDS: Oxy-IR 5 MG PO PRN ×4 (01:26→19:59)
[2018-04-06] MEDS: Flagyl 500 MG PO SCH ×3 (05:30→21:33)
[2018-04-06] MEDS: Lopressor 50 MG PO SCH (05:31)
[2018-04-06] MEDS: NORCO 7.5/325 MG TAB PO PRN ×3 (05:31→16:58)
[2018-04-06] MEDS: Spiriva 18 Mcg/Cap Inhaler IH SCH (07:42)
[2018-04-06] MEDS ORDERED: Aplisol ID SCH (10:00)
[2018-04-06] MEDS: Protonix 40MG Tablet PO SCH (10:58)
[2018-04-06] MEDS: PREMARIN PO SCH (10:58)
[2018-04-06] MEDS: VITAMIN D PO SCH (10:59)
[2018-04-06] MEDS: XARELTO 10 MG TABLET PO SCH (16:59)
[2018-04-07] MEDS: NORCO 7.5/325 MG TAB PO PRN ×4 (00:57→20:24)
[2018-04-07] MEDS: Flagyl 500 MG PO SCH ×3 (05:17→21:56)
[2018-04-07] MEDS: Lopressor 50 MG PO SCH (05:17)
[2018-04-07] MEDS: Oxy-IR 5 MG PO PRN ×4 (05:56→21:55)
[2018-04-07] MEDS: Spiriva 18 Mcg/Cap Inhaler IH SCH (06:43)
[2018-04-07] MEDS: Protonix 40MG Tablet PO SCH (11:51)
[2018-04-07] MEDS: VITAMIN D PO SCH (11:52)
[2018-04-07] MEDS: XARELTO 10 MG TABLET PO SCH (17:57)
[2018-04-08] MEDS: NORCO 7.5/325 MG TAB PO PRN ×2 (00:59→08:33)
[2018-04-08] MEDS: Flagyl 500 MG PO SCH (05:33)
[2018-04-08] MEDS: Oxy-IR 5 MG PO PRN ×2 (05:33→10:44)
[2018-04-08] MEDS: Lopressor 50 MG PO SCH (05:33)
[2018-04-08 06:15] LABS: ANION GAP 10.9 MEQ/L (5-15); BLOOD UREA NITROGEN 13 mg/dL (7-17); CHLORIDE 101 mmol/L (98-107); Calcium 9.8 mg/dL (8.4-10.2); Carbon Dioxide 30 mmol/L (22-30); Glucose 107 mg/dL (74-106); Potassium 4.1 mmol/L (3.5-5.1); SODIUM 137 mmol/L (137-145)
[2018-04-08 07:12] VITALS: BP 135/62
[2018-04-08] MEDS: Spiriva 18 Mcg/Cap Inhaler IH SCH (07:34)
[2018-04-08 07:37] VITALS: PULSE 67; O2SAT 98
[2018-04-08] MEDS: PREMARIN PO SCH (10:40)
[2018-04-08] MEDS: VITAMIN D PO SCH (10:40)
[2018-04-08] MEDS: Protonix 40MG Tablet PO SCH (10:40)
--- NOTE | 2018-04-08 12:40 | PCM.DS ---
Discharge Summary Date of Admission: 03/25/18 14:30 Admitting Physician: MICHAEL WANG Primary Care Provider: MICHAEL WANG Allergies Allergies codeine [Codeine] Allergy (Mild, Verified 04/08/12 12:57) Nausea cortisone [Cortisone] Allergy (Mild, Verified 04/08/12 12:57) Nausea epinephrine Allergy (Mild, Verified 04/08/12 12:57) palpatations Iodinated Contrast- Oral and IV Dye [IV Dye, Iodine Containing Contrast ] Allergy (Mild, Verified 04/08/12 12:57) Nausea meperidine HCl [From Demerol] Allergy (Mild, Verified 04/08/12 12:57) Nausea propoxyphene HCl [From Darvon] Allergy (Mild, Verified 04/08/12 12:57) Nausea aspirin [From [facility]] Allergy (Verified 04/08/12 12:57) all arthritis meds cause nausea diphenhydramine HCl [From [facility]] Allergy (Verified 04/08/12 12:57 ) all arthritis meds cause nausea ibuprofen [From [facility]] Allergy (Verified 04/08/12 12:57) all arthritis meds cause nausea tuberculin, purified protein deriva [From Aplisol] Adverse Reaction (Verified 09:42) Hospital Summary - Hospital Course Hospital Course: Chief Complaint Diagnosis Left Total Knee arthroplasty, Patient is admitted for rehab. Allergies Allergy/AdvReac Type Severity Reaction Status Date / Time codeine [Codeine] Allergy Mild Nausea Verified 04/08/12 12:57 cortisone [Cortisone] Allergy Mild Nausea Verified 04/08/12 12:57 epinephrine Allergy Mild palpatation Verified 04/08/12 12:57 s Iodinated Contrast- Oral and Allergy Mild Nausea Verified 04/08/12 12:57 IV Dye [IV Dye, Iodine Containing Contrast ] meperidine HCl [From Demerol] Allergy Mild Nausea Verified 04/08/12 12:57 propoxyphene HCl Allergy Mild Nausea Verified 04/08/12 12:57 [From Darvon] aspirin Allergy Verified 04/08/12 12:57 [From [facility]] diphenhydramine HCl Allergy Verified 04/08/12 12:57 [From [facility]] ibuprofen Allergy Verified 04/08/12 12:57 [From [facility]] tuberculin, purified protein AdvReac Verified 06/30/18 09:42 deriva [From Aplisol] Vital Signs (Last 24 hours) Temp Pulse Resp BP Pulse Ox 04/08/18 07:34 67 16 98 04/08/18 07:11 97.2 F 86 16 135/62 96 04/07/18 20:56 82 18 97 04/07/18 20:19 98.4 F 82 18 139/63 97 Home Medications Medication Instructions Recorded Confirmed Last Taken Type Cephalexin Mh 500 mg [Keflex 500 500 mg PO Q6H 03/25/18 03/25/18 03/25/18 History mg] Cholecalciferol (Vitamin D3) 1,000 unit PO DAILY 03/25/18 03/25/18 03/25/18 History [Vitamin D3] Cyanocobalamin 1000 Mcg/ml 1,000 mcg IM UD 03/25/18 03/25/18 03/14/18 History [Cyanocobalamin B-12 1000 MCG/ML] Hydrocodone Bit/Acetaminophen 1 each PO Q4H PRN 03/25/18 03/29/18 03/25/18 History [[place] 7.5-325 Tablet] Ipratropium Nunda 0.5 mg 0.5 mg IH QID 03/25/18 03/25/18 03/25/18 History [Atrovent 0.5MG NEBULE] Metoprolol Tartrate 50 mg 50 mg PO DAILY 03/25/18 03/25/18 03/25/18 History [Lopressor 50 MG] Multivitamin W-Minerals/Lutein 1 tab PO DAILY 03/25/18 03/25/18 03/25/18 History [Centrum Silver Tablet] Oxycodone HCl 5 mg Ir [Oxy-IR 5 5 mg PO Q4H PRN 03/25/18 03/25/18 03/25/18 History MG] Rivaroxaban 10 mg Tablet 10 mg PO DAILY 03/25/18 03/25/18 03/24/18 History [Xarelto 10 mg Tablet] Tiotropium Nunda Inhaler 1 puff IH DAILY 03/25/18 03/25/18 03/25/18 History [Spiriva 18 Mcg/Cap Inhaler] Current Medications Generic Name Dose Route Start Last Admin Trade Name Freq PRN Reason Stop Dose Admin Hydrocodone Bitart/Acetaminophen 1 tab 04/03/18 13:21 04/08/18 08:33 [place] 7.5/325 Mg Tab PO 04/08/18 13:20 1 tab Q4H PRN PRN Administration PAIN Al Hydrox/Mg Hydrox/Simethicone 30 ml 04/04/18 14:35 Maalox Es 30 Ml Unit Dose PO 05/04/18 14:34 Q4H PRN PRN INDIGESTION Cholecalciferol 1,000 unit 03/26/18 10:00 04/08/18 10:40 Vitamin D PO 04/25/18 09:59 1,000 unit DAILY ROGER Administration Cyanocobalamin 1,000 mcg 03/28/18 10:00 03/28/18 10:55 Cyanocobalamin B-12 1000 Mcg/Ml IM 04/27/18 09:59 1,000 mcg Q14D ROGER Administration Estrogens Conjugated 0.625 mg 03/28/18 10:00 04/08/18 10:40 Premarin PO 04/27/18 09:59 0.625 mg MoWeFr@1000 ROGER Administration Ipratropium Nunda 0.5 mg 03/26/18 11:14 03/26/18 19:56 Atrovent 0.5mg Nebule IH 04/25/18 11:11 0.5 mg PRN PRN Administration SHORTNESS OF BREATH/WHEEZING Metoprolol Tartrate 50 mg 03/29/18 06:00 04/08/18 05:33 Lopressor 50 Mg PO 04/25/18 09:59 50 mg 0600 ROGER Administration Metronidazole 500 mg 04/01/18 22:00 04/08/18 05:33 Flagyl 500 Mg PO 04/08/18 21:59 500 mg Q8H ROGER Administration Oxycodone HCl 5 mg 04/04/18 18:25 04/08/18 10:44 Oxy-Ir 5 Mg PO 04/09/18 18:24 5 mg Q4H PRN PRN Administration PAIN Pantoprazole Sodium 40 mg 04/04/18 15:00 04/08/18 10:40 Protonix 40mg Tablet PO 05/04/18 14:59 40 mg DAILY ROGER Administration Rivaroxaban 10 mg 03/25/18 18:00 04/07/18 17:57 Xarelto 10 Mg Tablet PO 04/24/18 17:59 10 mg DAILY@1800 ROGER Administration Tiotropium Nunda 1 ea 03/26/18 07:00 04/08/18 07:34 Spiriva 18 Mcg/Cap Inhaler IH 04/25/18 06:59 1 ea DAILY@0700 ROGER Administration Discontinued Medications Generic Name Dose Route Start Last Admin Trade Name Freq PRN Reason Stop Dose Admin Hydrocodone Bitart/Acetaminophen 1 tab 03/25/18 15:43 03/29/18 13:09 [place] 7.5/325 Mg Tab PO 03/30/18 15:42 1 tab Q6H PRN PRN Administration PAIN Hydrocodone Bitart/Acetaminophen 1 tab 03/29/18 13:09 04/03/18 10:59 [place] 7.5/325 Mg Tab PO 04/03/18 13:08 1 tab Q4H PRN PRN Administration PAIN Cephalexin HCl 500 mg 03/25/18 18:00 04/02/18 11:57 Keflex 500 Mg PO 04/24/18 17:59 Not Given Q6HT ROGER Ipratropium Nunda 0.5 mg 03/25/18 19:00 03/26/18 11:10 Atrovent 0.5mg Nebule IH 04/24/18 18:59 Not Given QIDRT [facility] Metoprolol Tartrate 50 mg 03/26/18 10:00 03/28/18 08:51 Lopressor 50 Mg PO 04/25/18 09:59 50 mg DAILY ROGER Administration Metronidazole 500 mg 04/01/18 22:00 Flagyl 500 Mg PO 04/08/18 22:00 TID ROGER Metronidazole Confirm 04/01/18 21:01 Flagyl 500 Mg Administered 04/01/18 21:02 Dose 500 mg .ROUTE .STK-MED ONE Multivitamins Therapeutic 1 tab 03/26/18 10:00 03/29/18 09:15 Theragran Multivitamin PO 04/25/18 09:59 1 tab DAILY ROGER Administration Oxycodone HCl 5 mg 03/25/18 15:43 03/30/18 12:12 Oxy-Ir 5 Mg PO 03/30/18 15:42 5 mg Q4H PRN PRN Administration PAIN Oxycodone HCl 5 mg 03/30/18 17:34 03/31/18 05:18 Oxy-Ir 5 Mg PO 04/04/18 17:33 5 mg Q4H PRN Administration PAIN Oxycodone HCl 5 mg 03/31/18 07:15 04/04/18 14:15 Oxy-Ir 5 Mg PO 04/04/18 17:33 5 mg Q4H/PRN PRN Administration PAIN Tuberculin PPD 5 unit 03/26/18 10:00 03/26/18 09:41 Aplisol ID 03/26/18 10:01 Not Given DAILY ROGER Tuberculin PPD 5 unit 04/06/18 10:00 Aplisol ID 04/06/18 10:01 DAILY ROGER Intake & Output (Last 24 hours) 04/06/18 04/07/18 04/08/18 04/09/18 11:59 11:59 11:59 11:59 Intake Total 1300 1240 760 Balance 1300 1240 760 Laboratory Results (Last 24 hours) 04/08/18 05:51 Sodium 137 Potassium 4.1 Chloride 101 Carbon Dioxide 30 Anion Gap 10.9 BUN 13 Creatinine 0.70 Estimated GFR > 60.0 Glucose 107 H Calcium 9.8 Orders (Last 24 hours) Category Date Time Status BMP Routine Lab 04/08/18 05:51 Completed Patient Care Notes (Last 24 hours) 04/08/18 11:56 Nutrition Note by Abbey Guerra F/u Note: Regular diet con't with 100% po intake. Pt down 3.5 kg since admission. Labs = glu 107. Recommend to cont with regular diet and goals which are being met. F/u prn. VICENTE Demarco Initialized on 04/08/18 11:56 - END OF NOTE - Vitals & Intake/Output Vital Signs: Vital Signs Temperature 97.2 F 04/08/18 07:11 Pulse Rate 67 04/08/18 07:34 Respiratory Rate 16 04/08/18 07:34 Blood Pressure 135/62 04/08/18 07:11 O2 Sat by Pulse Oximetry 98 04/08/18 07:34 Intake & Output: Intake & Output 04/06/18 04/07/18 04/08/18 04/09/18 11:59 11:59 11:59 11:59 Intake Total 1300 1240 760 Balance 1300 1240 760 - Lab Result Diagrams: 04/02/18 13:57 04/08/18 05:51 Lab Results-Last 24 Hrs: Lab Results-Last 24 Hours 04/08/18 Range/Units 05:51 Sodium 137 (137-145) mmol/L Potassium 4.1 (3.5-5.1) mmol/L Chloride 101 (98-107) mmol/L Carbon Dioxide 30 (22-30) mmol/L Anion Gap 10.9 (5-15) MEQ/L BUN 13 (7-17) mg/dL Creatinine 0.70 (0.52-1.04) mg/dL Estimated GFR > 60.0 ML/MIN Glucose 107 H (74-106) mg/dL Calcium 9.8 (8.4-10.2) mg/dL - Procedures and Test Procedures and Tests throughout Hospitalization: Therapy Orders & Screens 03/25/18 15:00 PT Eval & Treat ( Order) ROUTINE Reason for Eval:: direct admit to swingbed status for left total knee Diagnosis: Left Total Knee 03/25/18 15:05 OT Screen per Nursing Assess Comment: Protocol Order Physician Instructions: Greater than 3 points order OT Admission Screening Reason For Exam: Triggered on Admission Diagnosis: Left Total Knee Open Wound/Cellutlitis/Pressure Ulcers: No Acute Fx/ORIF/Change in wt bearing status: No Severe MUSCULOSKELETAL pain: No ADL Dysfunction: Yes Acute CVA w/Hemiparesis/Hemiplegia: No Decreased Functional Mobility/Strength: Yes Sprain/Strain: No Acute Post-op Mobility Dysfunction: Yes Total Points: 7 PT Screen per Nursing Assess ONCE Comment: Protocol Order Physician Instructions: Greater than 3 points order PT Admission Screenin Reason For Exam: Triggered on Admission Diagnosis: Left Total Knee Open Wound/Cellutlitis/Pressure Ulcers: No Acute Fx/ORIF/Change in wt bearing status: No Severe MUSCULOSKELETAL pain: No ADL Dysfunction: Yes Acute CVA w/Hemiparesis/Hemiplegia: No Decreased Functional Mobility/Strength: Yes Sprain/Strain: No Acute Post-op Mobility Dysfunction: Yes Total Points: 7 03/25/18 19:00 Respiratory Nebulizer UD Comment: Atrovent QID Diagnosis: Left Total Knee 03/26/18 07:00 Respiratory MDI 0700 Comment: Spiriva Daily Diagnosis: Left Total Knee Discharge Exam General Appearance: no apparent distress, alert Neurologic Exam: alert, oriented x 3, cooperative, normal mood/affect, nml cerebellar function, sensation nml, No motor deficits Skin Exam: normal color, warm, dry Eye Exam: PERRL, EOMI, eyes nml inspection Ears, Nose, Throat Exam: normal ENT inspection, pharynx normal, moist mucous membranes Neck Exam: normal inspection, non-tender, supple, full range of motion Respiratory Exam: normal breath sounds, lungs clear, No respiratory distress Cardiovascular Exam: regular rate/rhythm, normal heart sounds Gastrointestinal/Abdomen Exam: soft, No tenderness, No mass Extremity Exam: normal inspection, normal range of motion Back Exam: normal inspection, normal range of motion, No CVA tenderness, No vertebral tenderness Pelvic Exam: deferred Rectal Exam: deferred Final Diagnosis/Problem List - Final Discharge Diagnosis/Problem (1) History of arthroplasty of left knee Current Visit: Yes Status: Acute - Discharge Discharge Date: 04/08/18 Disposition: Home, Self-Care Condition: Stable Prescriptions: No Action Estrogens,Conjugated [Premarin] 0.625 mg PO 3XW Metoprolol Tartrate 50 mg [Lopressor 50 MG] 50 mg PO DAILY Cholecalciferol (Vitamin D3) [Vitamin D3] 1,000 unit PO DAILY Hydrocodone Bit/Acetaminophen [[place] 7.5-325 Tablet] 1 each PO Q4H PRN PRN Reason: Pain Ipratropium Nunda 0.5 mg [Atrovent 0.5MG NEBULE] 0.5 mg IH QID Multivitamin W-Minerals/Lutein [Centrum Silver Tablet] 1 tab PO DAILY Oxycodone HCl 5 mg Ir [Oxy-IR 5 MG] 5 mg PO Q4H PRN PRN Reason: Pain Cyanocobalamin 1000 Mcg/ml [Cyanocobalamin B-12 1000 MCG/ML] 1,000 mcg IM UD Tiotropium Nunda Inhaler [Spiriva 18 Mcg/Cap Inhaler] 1 puff IH DAILY Cephalexin Mh 500 mg [Keflex 500 mg] 500 mg PO Q6H Rivaroxaban 10 mg Tablet [Xarelto 10 mg Tablet] 10 mg PO DAILY Follow up with: JOVANNA BEZN [NON-STAFF PHY W/O PRIVILEGES] - 04/01/18 10:00 am MICHAEL WANG MD [Primary Care Provider] - 04/14/18 10:45 am Forms: Patient Portal Information
[2018-04-08] MEDS ORDERED: NORCO 7.5/325 MG TAB PO PRN (13:37)
== END 2018-04-08 13:50 | disposition home or self-care (01) | DRG 565 ==
LOC: MED SURG 14:30
PROVIDERS: ADMIT General Practice; ATTEND General Practice
DX: Z96.652 Presence of left artificial knee joint (principal); A04.72 Enterocolitis due to Clostridium difficile, not specified as recurrent; J44.9 Chronic obstructive pulmonary disease, unspecified; M79.7 Fibromyalgia; R07.81 Pleurodynia; R10.12 Left upper quadrant pain; G62.9 Polyneuropathy, unspecified; R76.12 Nonspecific reaction to cell mediated immunity measurement of gamma interferon antigen response without active tuberculosis; Z79.01 Long term (current) use of anticoagulants; Z79.899 Other long term (current) drug therapy
CPT/HCPCS: 36415; 71046; 71100; 80048; 80053; 83690; 85025; 86480; 87493; 94150; 94640; 94760; J3420; 97110-GP; A9270-GY

== ENCOUNTER 2024-02-29 14:58 | Emergency (ER) | payer MEDICARE ==
[2024-02-29 15:09] VITALS: TEMP 97.6
--- NOTE | 2024-02-29 15:31 | ERPHSYRPT ---
- History of Present Illness Time Seen by Provider: 02/29/24 15:17 Historian: patient Exam Limitations: no limitations Patient Subjective Stated Complaint: PT states "I have pain in my chest and it is a burning pain and it started about 30 minutes ago." Triage Nursing Assessment: Pt presented alert and oriented X 3, skin pwd. Pt ambulates with an upright steady gait, able to speak in clear full sentencs. Pt resting comfortably on the bed. Timing/Duration: today Activities at Onset: activity Quality: aching Chest Pain Radiation: no radiation Severity of Pain-Max: mild Severity of Pain-Current: mild Modifying Factors: Improves With: nothing Associated Symptoms: denies symptoms Prior Chest Pain/Cardiac Workup: angina Nitro Today/Relief: complete relief Aspirin Treatment Today: provided at home (patient refused here in the department) Allergies/Adverse Reactions: codeine [Codeine] Allergy (Mild, Verified 04/08/12 12:57) Nausea cortisone [Cortisone] Allergy (Mild, Verified 04/08/12 12:57) Nausea epinephrine Allergy (Mild, Verified 04/08/12 12:57) palpatations Iodinated Contrast Media [IV Dye, Iodine Containing Contrast ] Allergy (Mild, Verified 04/08/12 12:57) Nausea meperidine HCl [From Demerol] Allergy (Mild, Verified 04/08/12 12:57) Nausea propoxyphene HCl [From Darvon] Allergy (Mild, Verified 04/08/12 12:57) Nausea aspirin [From [employer]] Allergy (Verified 04/08/12 12:57) all arthritis meds cause nausea diphenhydramine HCl [From [employer]] Allergy (Verified 04/08/12 12:57) all arthritis meds cause nausea ibuprofen [From [employer]] Allergy (Verified 04/08/12 12:57) all arthritis meds cause nausea tuberculin, purified protein deriva [From Aplisol] Adverse Reaction (Verified 03/26/18 09:42) Home Medications: Estrogens,Conjugated [Premarin] 0.625 mg PO 3XW 04/08/12 [History] Cholecalciferol (Vitamin D3) [Vitamin D3] 1,000 unit PO DAILY 03/25/18 [History] Cyanocobalamin 1000 Mcg/ml [Cyanocobalamin B-12 1000 MCG/ML] 1,000 mcg IM UD 03/25/18 [History] Hydrocodone/Acetaminophen [[place] 7.5-325 Tablet] 1 each PO Q4H PRN 03/25/18 [His tory] Ipratropium [place] 0.5 mg [Atrovent 0.5MG NEBULE] 0.5 mg IH QID 03/25/18 [History] Metoprolol Tartrate 50 mg [Lopressor 50 MG] 50 mg PO DAILY 03/25/18 [History] Multivitamin W-Minerals/Lutein [Centrum Silver Tablet] 1 tab PO DAILY 03/25/18 [History] Oxycodone HCl 5 mg Ir [Oxy-IR 5 MG] 5 mg PO Q4H PRN 03/25/18 [History] Rivaroxaban 10 mg Tablet [Xarelto 10 mg Tablet] 10 mg PO DAILY 03/25/18 [History] Tiotropium [place] Inhaler [Spiriva 18 Mcg/Cap Inhaler] 1 puff IH DAILY 03/25/18 [History] Hx Tetanus, Diphtheria Vaccination/Date Given: Yes Hx Influenza Vaccination/Date Given: Yes (2010) Hx Pneumococcal Vaccination/Date Given: No Immunizations Up to Date: No Travel Risk - Emerging Infectious Disease Are you exhibiting symptoms associated with any current EIDs: No - Vaccine Status Hx Covid Vaccintation/Booster/Date Given: No - Review of Systems Eyes: No Symptoms Ears, Nose, & Throat: No Symptoms Respiratory: No Symptoms Cardiac: Chest Pain Abdominal/Gastrointestinal: No Symptoms Genitourinary Symptoms: No Symptoms Musculoskeletal: No Symptoms Skin: No Symptoms Neurological: No Symptoms Psychological: No Symptoms Endocrine: No Symptoms Hematologic/Lymphatic: No Symptoms Immunological/Allergic: No Symptoms - Past Medical History Pertinent Past Medical History: Yes Neurological History: No Pertinent History ENT History: Cataracts Cardiac History: High Cholesterol, Hypertension, Other Respiratory History: Tuberculosis Endocrine Medical History: Other Musculoskeletal History: Fractures GI Medical History: Gallbladder Disease History: No Pertinent History Psycho-Social History: No Pertinent History Female Reproductive Disorders: No Pertinent History Other Medical History: Lupus, A-Fib, R Foot fractures, B foot reconstruction, B TKA, hysterectomy, back surgery x2. Nga unable to recall full medical history. - Past Surgical History Past Surgical History: Yes Neuro Surgical History: No Pertinent History Cardiac: Cardiac Catheterization, Other Respiratory: No Pertinent History Gastrointestinal: No Pertinent History Musculoskeletal: Joint Replacement Female Surgical History: Hysterectomy, Lumpectomy Other Surgical History: open heart ticuspid valve repair. right total knee replacement and bilateral foot implants. lumbar surgery x2. denies appendectomy. T&A. bilateral cataract - Social History Smoking Status: Never smoker Exposure to second hand smoke: No Drug Use: none - Social Determinants of Health Will the patient participate in the screening: Declined to provide - Nursing Vital Signs Nursing Vital Signs: Initial Vital Signs Temperature 97.6 F 02/29/24 14:59 Pulse Rate 72 02/29/24 14:59 Respiratory Rate 20 02/29/24 14:59 Blood Pressure 201/100 02/29/24 14:59 O2 Sat by Pulse Oximetry 96 02/29/24 14:59 Pain Scale Pain Intensity 0 - Physical Exam General Appearance: no apparent distress Eye Exam: PERRL/EOMI Ears, Nose, Throat Exam: normal ENT inspection Neck Exam: normal inspection Respiratory Exam: normal breath sounds Cardiovascular Exam: regular rate/rhythm Gastrointestinal/Abdomen Exam: soft Extremity Exam: pedal edema Neurologic Exam: alert, oriented x 3 Skin Exam: normal color SpO2: 96 - Radiology Exams Chest X-ray Interpretation: Reviewed by me (Chest x-ray reveals no acute findings except for tortuous aorta, she is updated with the results and informed the need for CT of the chest however she refuses she is assigned medical decision-making capability and wants to go home and wants to leave AMA, nursing staf was no tified ) Ordered Tests: Active Orders 24 hr Category Date Time Status CHEST 1 VIEW (PORTABLE) Stat Exams 02/29/24 15:25 Completed CBC W DIFF Stat Lab 02/29/24 15:42 Completed CMP Stat Lab 02/29/24 15:42 Completed NT PRO BNPII Stat Lab 02/29/24 15:42 Completed PROTIME WITH INR Stat Lab 02/29/24 15:42 Completed TROPONIN Q4H Lab 02/29/24 15:42 Completed TROPONIN Q4H Lab 02/29/24 19:30 Ordered TROPONIN Q4H Lab 02/29/24 23:30 Ordered Urine Triage Profile Stat Lab 02/29/24 16:25 Ordered Lab/Rad Data: Laboratory Result Diagrams 02/29/24 15:42 06/04/24 15:42 Laboratory Results 02/29/24 02/29/24 02/29/24 Range/Units 15:42 15:42 15:42 WBC (4.0-10.5) x10^3/uL RBC (4.1-5.4) x10^6/uL Hgb (12.0-16.0) g/dL Hct (35-47) % MCV (78-100) fL MCH (26-32) pg MCHC (32-36) g/dL RDW (11.5-14.0) % Plt Count (150-450) x10^3/uL MPV (7.5-11.0) fL Gran % (36.0-66.0) % Immature Gran % (Auto) (0.00-0.4) % Nucleat RBC Rel Count (0.00-0.1) % Eos # (Auto) (0-0.5) x10^3/uL Immature Gran # (Auto) (0.00-0.03) x10^3u/L Absolute Lymphs (auto) (1.0-4.6) x10^3/uL Absolute Monos (auto) (0.0-1.3) x10^3/uL Absolute Nucleated RBC (0.00-0.01) x10^3u/L Lymphocytes % (24.0-44.0) % Monocytes % (0.0-12.0) % Eosinophils % (0.00-5.0) % Basophils % (0.0-0.4) % Absolute Granulocytes (1.4-6.9) x10^3/uL Basophils # (0-0.4) x10^3/uL PT 11.0 (9.4-12.5) SECONDS INR 1.01 (0.8-3.0) Sodium 137 (135-145) mmol/L Potassium 4.2 (3.5-5.1) mmol/L Chloride 101 (98-107) mmol/L Carbon Dioxide 30 (22-30) mmol/L Anion Gap 10.7 (5-15) MEQ/L BUN 17 (7-17) mg/dL Creatinine 0.86 (0.52-1.04) mg/dL Estimated GFR 66.6 ML/MIN Glucose 98 (74-106) mg/dL Calcium 10.4 H (8.4-10.2) mg/dL Total Bilirubin 0.70 (0.2-1.3) mg/dL AST 24 (14-36) U/L ALT 9 (0-35) U/L Alkaline Phosphatase 55 (38-126) U/L Troponin I < 0.012 (0.000-0.033) ng/mL NT-Pro-B Natriuret Pep 1190 (<300) pg/mL Serum Total Protein 7.5 (6.3-8.2) g/dL Albumin 4.6 (3.5-5.0) g/dL 02/29/24 Range/Units 15:42 WBC 6.3 (4.0-10.5) x10^3/uL RBC 3.84 L (4.1-5.4) x10^6/uL Hgb 12.3 (12.0-16.0) g/dL Hct 37.4 (35-47) % MCV 97.4 (78-100) fL MCH 32.0 (26-32) pg MCHC 32.9 (32-36) g/dL RDW 13.0 (11.5-14.0) % Plt Count 203 (150-450) x10^3/uL MPV 10.2 (7.5-11.0) fL Gran % 65.5 (36.0-66.0) % Immature Gran % (Auto) 0.2 (0.00-0.4) % Nucleat RBC Rel Count 0.0 (0.00-0.1) % Eos # (Auto) 0.16 (0-0.5) x10^3/uL Immature Gran # (Auto) 0.01 (0.00-0.03) x10^3u/L Absolute Lymphs (auto) 1.51 (1.0-4.6) x10^3/uL Absolute Monos (auto) 0.44 (0.0-1.3) x10^3/uL Absolute Nucleated RBC 0.00 (0.00-0.01) x10^3u/L Lymphocytes % 24.2 (24.0-44.0) % Monocytes % 7.0 (0.0-12.0) % Eosinophils % 2.6 (0.00-5.0) % Basophils % 0.5 (0.0-0.4) % Absolute Granulocytes 4.10 (1.4-6.9) x10^3/uL Basophils # 0.03 (0-0.4) x10^3/uL PT (9.4-12.5) SECONDS INR (0.8-3.0) Sodium (135-145) mmol/L Potassium (3.5-5.1) mmol/L Chloride (98-107) mmol/L Carbon Dioxide (22-30) mmol/L Anion Gap (5-15) MEQ/L BUN (7-17) mg/dL Creatinine (0.52-1.04) mg/dL Estimated GFR ML/MIN Glucose (74-106) mg/dL Calcium (8.4-10.2) mg/dL Total Bilirubin (0.2-1.3) mg/dL AST (14-36) U/L ALT (0-35) U/L Alkaline Phosphatase (38-126) U/L Troponin I (0.000-0.033) ng/mL NT-Pro-B Natriuret Pep (<300) pg/mL Serum Total Protein (6.3-8.2) g/dL Albumin (3.5-5.0) g/dL - Progress Progress: unchanged Air Movement: good Blood Culture(s) Obtained: No Antibiotics given: No (Patient wants to leave AMA-he is of sound medical decision-making capability and does not want any further testing risk of partial and permanent handicap explained she still wants to leave) - Departure Departure Disposition: AMA Clinical Impression: Chest pain Condition: Good Critical Care Time: No Referrals: MICHAEL WANG MD [Primary Care Provider] - Follow up/PCP as directed
[2024-02-29 16:01] LABS: INR 1.01 (0.8-3.0)
[2024-02-29 16:17] LABS: BASOPHIL % 0.5 % (0.0-0.4); Basophil (Absolute #) 0.03 x10^3/uL (0-0.4); Eosinophil % 2.6 % (0.00-5.0); Eosinophil (Absolute #) 0.16 x10^3/uL (0-0.5); Hematocrit 37.4 % (35-47); Hemoglobin 12.3 g/dL (12.0-16.0); IMMATURE GRAN # 0.01 x10^3u/L (0.00-0.03); IMMATURE GRAN % 0.2 % (0.00-0.4); Lymphocyte (Absolute #) 1.51 x10^3/uL (1.0-4.6); Lymphocytes % 24.2 % (24.0-44.0); Mean Cell Volume 97.4 fL (78-100); Mean Corpuscular Hgb Concent. 32.9 g/dL (32-36); Mean Platelet Volume 10.2 fL (7.5-11.0); Monocyte (Absolute #) 0.44 x10^3/uL (0.0-1.3); Neutrophil % 65.5 % (36.0-66.0); Platelet Count 203 x10^3/uL (150-450); Red Blood Count 3.84 x10^6/uL (4.1-5.4); White Blood Count 6.3 x10^3/uL (4.0-10.5)
[2024-02-29 16:25] LABS: ALBUMIN 4.6 g/dL (3.5-5.0); ANION GAP 10.7 MEQ/L (5-15); BILIRUBIN,TOTAL 0.7 mg/dL (0.2-1.3); Calcium 10.4 mg/dL (8.4-10.2); Creatinine 1 0.86 mg/dL (0.52-1.04); EST GLOMERULAR FILTRATION RATE 66.6 ML/MIN; Potassium 4.2 mmol/L (3.5-5.1); Total Protein 7.5 g/dL (6.3-8.2)
--- NOTE | 2024-02-29 16:36 | XRAY ---
Indication: Chest pain. Comparison: May 27, 2023 Portable chest remains hyperinflated and is now clear. Heart not enlarged again with tortuous descending aorta and CABG. Bony thorax intact again with osteopenia and mild degenerative changes. No new/acute findings.
[2024-02-29 17:08] VITALS: O2SAT 96
[2024-02-29 17:14] VITALS: BP 194/90; PULSE 73; RESP 26
== END 2024-02-29 17:17 | disposition left against medical advice (07) ==
LOC: ED 14:58
DX: R07.9 Chest pain, unspecified (principal); E78.5 Hyperlipidemia, unspecified; I10 Essential (primary) hypertension; Z79.01 Long term (current) use of anticoagulants; Z79.899 Other long term (current) drug therapy
CPT/HCPCS: 36415; 71045; 80053; 83880; 84484; 85025; 85610; 99283

== ENCOUNTER 2025-04-22 15:00 | Emergency (ER) | payer MEDICARE ==
[2025-04-22] MEDS ORDERED: XYLOCAINE 4% TOPICAL SOLUTION 50 ML ONE (15:29)
[2025-04-22] MEDS: XYLOCAINE 4% TOPICAL SOLUTION 50 ML TOP ONE (15:30)
--- NOTE | 2025-04-22 15:37 | ERPHSYRPT ---
- History of Present Illness Time Seen by Provider: 04/22/25 15:32 Source: patient, family Exam Limitations: no limitations Physician History: Patient is 84-year-old female with significant past medical history of coronary artery disease COPD generalized osteoarthritis hypertension hypertensive heart disease chronic kidney disease history of osteoarthritis started having pain in her left calf mainly at 1 spot in the middle of her leg in the calf area. Patient has a varicose veins. That spot is about 2 x 2 cm and tender on touch. She feels burning pain in that spot. No active bleeding in that area. Severity of Pain-Max: moderate Severity of Pain-Current: moderate Lower Extremities Pain: leg: left (2x2 cms tender spot in mid calf area) Modifying Factors: Improves With: nothing Associated Symptoms: none Allergies/Adverse Reactions: codeine [Codeine] Allergy (Mild, Verified 04/08/12 12:57) Nausea cortisone [Cortisone] Allergy (Mild, Verified 04/08/12 12:57) Nausea epinephrine Allergy (Mild, Verified 04/08/12 12:57) palpatations Iodinated Contrast Media [IV Dye, Iodine Containing Contrast ] Allergy (Mild, Verified 04/08/12 12:57) Nausea meperidine HCl [From Demerol] Allergy (Mild, Verified 04/08/12 12:57) Nausea propoxyphene HCl [From Darvon] Allergy (Mild, Verified 04/08/12 12:57) Nausea aspirin [From [employer]] Allergy (Verified 04/08/12 12:57) all arthritis meds cause nausea diphenhydramine HCl [From [employer]] Allergy (Verified 04/08/12 12:57) all arthritis meds cause nausea ibuprofen [From [employer]] Allergy (Verified 04/08/12 12:57) all arthritis meds cause nausea tuberculin, purified protein deriva [From Aplisol] Adverse Reaction (Verified 03/26/18 09:42) Home Medications: Estrogens,Conjugated [Premarin] 0.625 mg PO 3XW 04/08/12 [History] Cholecalciferol (Vitamin D3) [Vitamin D3] 1,000 unit PO DAILY 03/25/18 [History] Cyanocobalamin 1000 Mcg/ml [Cyanocobalamin B-12 1000 MCG/ML] 1,000 mcg IM UD 03/25/18 [History] Hydrocodone/Acetaminophen [[place] 7.5-325 Tablet] 1 each PO Q4H PRN 03/25/18 [His tory] Ipratropium [place] 0.5 mg [Atrovent 0.5MG NEBULE] 0.5 mg IH QID 03/25/18 [History] Metoprolol Tartrate 50 mg [Lopressor 50 MG] 50 mg PO DAILY 03/25/18 [History] Multivitamin W-Minerals/Lutein [Centrum Silver Tablet] 1 tab PO DAILY 03/25/18 [History] Oxycodone HCl 5 mg Ir [Oxy-IR 5 MG] 5 mg PO Q4H PRN 03/25/18 [History] Rivaroxaban 10 mg Tablet [Xarelto 10 mg Tablet] 10 mg PO DAILY 03/25/18 [History] Tiotropium [place] Inhaler [Spiriva 18 Mcg/Cap Inhaler] 1 puff IH DAILY 03/25/18 [History] Hx Tetanus, Diphtheria Vaccination/Date Given: Yes Hx Influenza Vaccination/Date Given: Yes (2010) Hx Pneumococcal Vaccination/Date Given: No Travel Risk - Emerging Infectious Disease Are you exhibiting symptoms associated with any current EIDs: No - Review of Systems Constitutional: No Symptoms Eyes: No Symptoms Ears, Nose, & Throat: No Symptoms Respiratory: No Symptoms Cardiac: No Symptoms Abdominal/Gastrointestinal: No Symptoms Genitourinary Symptoms: No Symptoms Musculoskeletal: No Symptoms Skin: Induration (left mid calf) Neurological: No Symptoms Psychological: No Symptoms Endocrine: No Symptoms Hematologic/Lymphatic: Other (vericose veins) - Past Medical History Neurological History: No Pertinent History Cardiac History: Hypertension Respiratory History: Asthma, Other Endocrine Medical History: Other Musculoskeletal History: Osteoarthritis Other Medical History: PATIENT IS CURRENTLY BEING SEEN BY PT FOR BACK PAIN, OT FOR SHOULDER PAIN. KIDNEY PROBLEMS, LEAKY HEART VALVES, POSITIVE TB, LUPUS, 2 BACK SURGERIES, B TKA, B FOOT SURGERIES. - Past Surgical History Past Surgical History: Yes Neuro Surgical History: No Pertinent History Cardiac: Cardiac Catheterization, Other Respiratory: No Pertinent History Gastrointestinal: No Pertinent History Musculoskeletal: Joint Replacement Female Surgical History: Hysterectomy, Lumpectomy Other Surgical History: open heart ticuspid valve repair. right total knee replacement and bilateral foot implants. lumbar surgery x2. denies appendectomy. T&A. bilateral cataract - Social History Smoking Status: Never smoker Exposure to second hand smoke: No Drug Use: none - Social Determinants of Health Will the patient participate in the screening: Declined to provide - Physical Exam General Appearance: alert Eyes, Ears, Nose, Throat Exam: moist mucous membranes Neck Exam: non-tender, supple Cardiovascular/Respiratory Exam: chest non-tender, normal breath sounds, regular rate/rhythm, no respiratory distress Gastrointestinal/Abdominal Exam: non-tender, guarding Back Exam: normal inspection, No vertebral tenderness Hips Exam: bilateral: non-tender Legs Exam: left leg: pain (mid calf area) Neuro/Tendon Exam: normal sensation, normal motor functions Mental Status Exam: alert, oriented x 3, cooperative Skin Exam: normal color, warm, dry - Course Nursing assessment & vital signs reviewed: Yes Ordered Tests: Active Orders 24 hr Category Date Time Status Ice Pack, Apply PRN Care 04/22/25 15:25 Active Medication Summary Discontinued Medications Generic Name Dose Route Start Last Admin Trade Name Freq PRN Reason Stop Dose Admin Lidocaine HCl 10 ml 04/22/25 15:25 04/22/25 15:30 Lidocaine 4% Topical Solution 50 Ml Ml TOP 04/22/25 15:26 10 ml STAT ONE Administration Lidocaine HCl Confirm 04/22/25 15:29 Lidocaine 4% Topical Solution 50 Ml Ml Administered 04/22/25 15:30 Dose 1 ml .ROUTE .STK-MED ONE - Progress Progress: unchanged Counseled pt/family regarding: diagnosis, need for follow-up Medical Desision Making - Independent Historian Additional History obtained from: Family - Diagnostic Testing Diagnostic test were ordered, analyzed, and reviewed by me: No - Risk of complications Minimal Risk: Minimal risk of morbidity - Departure Departure Disposition: Home Clinical Impression: Superficial thrombophlebitis of left leg Condition: Stable Critical Care Time: No Referrals: MICHAEL WANG MD [Primary Care Provider, INTERNAL MEDICINE] - Follow up/PCP as directed Instructions: Superficial vein phlebitis and thrombosis Additional Instructions: Apply xylocaine topical solution on affected painful area 4 times a day Discharge/Care Plan CARMEN COPELAND was seen on 04/22/25 in the Emergency Room. The patient was counseled regarding Diagnosis,Lab results, Imaging studies, need for follow up and when to return to the Emergency Room. Prescriptions given: Discharge Note I have spoken with the patient and/or caregivers. I have explained the patient's condition, diagnosis and treatment plan based on the information available to me at this time. I have answered the patient's and/or caregiver's questions and addressed any concerns. The patient and/or caregivers have as good understanding of the patient's diagnosis, condition and treatment plan as can be expected at this point. The vital signs have been stable. The patient's condition is stable and appropriate for discharge from the emergency department. The patient will pursue further outpatient evaluation with the primary care physician or other designated or consulting physician as outlined in the discharge instructions. The patient and/or caregivers are agreeable to this plan of care and follow-up instructions have been explained in detail. The patient and/or caregivers have received these instruction. The patient/and or caregivers are aware that any significant change in condition or worsening of symptoms should prompt an immediate return to this or the closest emergency department or call 911. COPELANDCARMEN was seen on 04/22/25 n the Emergency Room. At that time you were treated for an emergent condition, during your visit Laboratory, Radiology and/or other procedures may have been ordered. It is very important that you follow-up with your Primary Care Physician MICHAEL WANG within the next 24-48 hours to review your Emergency Room visit and the final results of testing that was ordered. Some test results such as Urine Cultures, Blood Cultures, and other cultures if ordered will not be finalized for 24-48 hours. If you do not have a Primary Care Provider please call the medical records department at [phone] ext [phone] to obtain a copy of your results or you may sign into our patient portal to obtain these results by visiting us @ [email or web address] and completing the following steps: 1. Click on the Patient Portal link 2. Click the Patient Self Enrollment Link to complete the enrollment form and entering your 3. Once the enrollment form is completed you will receive an email with a [employer] porary ID and password at the email address you provided. 4. Next choose a user name and password. Your user name must be at least 4 characters long and your password must be at least 4 characters long. 5. Choose a security question from the list and provide your answer to the question. If you already have signed into the Health Portal you may access your Health Care Information 19/04 by the following steps: 1. Login to our website @ [email or web address] 2. Enter your original user name and password. FAQS The [facility] Health Portal is an online tool that contains your Lab Results, Radiology Reports, Visit History, Discharge Instructions and Health Summary Lab and Radiology Results will not be available for 72 hours on the portal. The Portal is a secure site, passwords are encryted and URLs are re-written so they cannot be copied and pasted. You and authorized family members are the only ones who can access your Portal. Also there is a timeout feature that protects your information if you leave the Portal page open. If you have technical difficulty please use the Contact Us link on the page this will allow you to submit any questions you have regarding the Portal or you may contact the Medical Record Department at [phone].
[2025-04-22 15:42] VITALS: TEMP 98
[2025-04-22 15:46] VITALS: BP 182/94; PULSE 63; RESP 18; O2SAT 87
[2025-04-22] MEDS ORDERED: TORAdol 30 mg Injection ONE (15:52)
[2025-04-22] MEDS: TORAdol 30 mg Injection IM ONE (15:54)
== END 2025-04-22 15:59 | disposition home or self-care (01) ==
LOC: ED 15:00
DX: I80.02 Phlebitis and thrombophlebitis of superficial vessels of left lower extremity (principal); M79.662 Pain in left lower leg; I13.10 Hypertensive heart and chronic kidney disease without heart failure, with stage 1 through stage 4 chronic kidney disease, or unspecified chronic kidney disease; N18.9 Chronic kidney disease, unspecified; Z79.899 Other long term (current) drug therapy

== ENCOUNTER 2025-04-26 07:19 | Emergency (ER) | payer MEDICARE ==
[2025-04-26 07:35] VITALS: TEMP 99.7
[2025-04-26 07:50] LABS: BASOPHIL % 0.2 % (0.1-1.2); Basophil (Absolute #) 0.02 x10^3/uL (0.01-0.08); Eosinophil (Absolute #) 0.01 x10^3/uL (0.04-0.36); Hematocrit 32.5 % (34.1-44.9); Hemoglobin 10.6 g/dL (11.2-15.7); IMMATURE GRAN # 0.04 x10^3u/L (0.001-0.031); IMMATURE GRAN % 0.4 % (0.001-0.429); Lymphocyte (Absolute #) 1.16 x10^3/uL (1.18-3.74); Mean Corpuscular Hemoglobin 32.8 pg (25.6-32.2); Mean Corpuscular Hgb Concent. 32.6 g/dL (32.2-35.5); Monocyte (Absolute #) 0.66 x10^3/uL (0.24-0.86); NUCLEATED RBC # 0.00 x10^3u/L (0.00-0.012); NUCLEATED RBC % 0.0 % (0.00-0.2); Platelet Count 164 x10^3/uL (182-369); Red Blood Count 3.23 x10^6/uL (3.93-5.22); White Blood Count 9.0 x10^3/uL (3.98-10.04)
--- NOTE | 2025-04-26 08:27 | XRAY ---
Indication: Edema. Two-dimensional sonogram and color Doppler imaging major venous vessels left leg performed. Comparison: None No thrombus seen in the examined deep venous vessels left leg including greater saphenous vein. Veins demonstrate normal compressibility. Venous waveforms are normal with and without augmentation. Impression: Left leg negative for DVT.
[2025-04-26 08:35] VITALS: BP 116/71; PULSE 88; RESP 18; O2SAT 86
--- NOTE | 2025-04-26 08:47 | ERPHSYRPT ---
- History of Present Illness Source: patient Exam Limitations: no limitations Patient Subjective Stated Complaint: pt c/o of left lower leg pain Triage Nursing Assessment: Pt was brought to the ER by her niece, hypertensive, rates pain 10/10, erum lower leg edema, tender/reddened area to the medial posterior left calf, pulses normal, skin n/w/d, denies any other issues Physician History: Patient has area of pain on her left leg. It is lower it is on the posterior calf. It started out small and with some erythematous skin and a little bit of raised indurated area. It is expanded now. She was put on lidocaine topical and it helped with the pain but it is getting worse. She is worried about a blood clot. She does not have any new edema in her leg. The area in question is really tender to the touch. She has not had any fever or chills but the area is warm and erythematous locally. Allergies/Adverse Reactions: codeine [Codeine] Allergy (Mild, Verified 04/26/25 07:35) Nausea cortisone [Cortisone] Allergy (Mild, Verified 04/26/25 07:35) Nausea epinephrine Allergy (Mild, Verified 04/26/25 07:35) palpatations Iodinated Contrast Media [IV Dye, Iodine Containing Contrast ] Allergy (Mild, Verified 04/26/25 07:35) Nausea meperidine HCl [From Demerol] Allergy (Mild, Verified 04/26/25 07:35) Nausea propoxyphene HCl [From Darvon] Allergy (Mild, Verified 04/26/25 07:35) Nausea aspirin [From [employer]] Allergy (Verified 04/26/25 07:35) all arthritis meds cause nausea diphenhydramine HCl [From [employer]] Allergy (Verified 04/26/25 07:35) all arthritis meds cause nausea ibuprofen [From [employer]] Allergy (Verified 04/26/25 07:35) all arthritis meds cause nausea tuberculin, purified protein deriva [From Aplisol] Adverse Reaction (Verified 04/26/25 07:35) Home Medications: Estrogens,Conjugated [Premarin] 0.625 mg PO 3XW 04/08/12 [History] Cholecalciferol (Vitamin D3) [Vitamin D3] 1,000 unit PO DAILY 03/25/18 [History] Cyanocobalamin 1000 Mcg/ml [Cyanocobalamin B-12 1000 MCG/ML] 1,000 mcg IM UD 03/25/18 [History] Hydrocodone/Acetaminophen [[place] 7.5-325 Tablet] 1 each PO Q4H PRN 03/25/18 [History] Ipratropium [place] 0.5 mg [Atrovent 0.5MG NEBULE] 0.5 mg IH QID 03/25/18 [History] Metoprolol Tartrate 50 mg [Lopressor 50 MG] 50 mg PO DAILY 03/25/18 [History] Multivitamin W-Minerals/Lutein [Centrum Silver Tablet] 1 tab PO DAILY 03/25/18 [History] Oxycodone HCl 5 mg Ir [Oxy-IR 5 MG] 5 mg PO Q4H PRN 03/25/18 [History] Rivaroxaban 10 mg Tablet [Xarelto 10 mg Tablet] 10 mg PO DAILY 03/25/18 [History] Tiotropium [place] Inhaler [Spiriva 18 Mcg/Cap Inhaler] 1 puff IH DAILY 03/25/18 [History] Hx Tetanus, Diphtheria Vaccination/Date Given: Yes Hx Influenza Vaccination/Date Given: Yes (2010) Hx Pneumococcal Vaccination/Date Given: No Travel Risk - International Travel Have you traveled outside of the country in past 3 weeks: No - Emerging Infectious Disease Are you exhibiting symptoms associated with any current EIDs: No - Review of Systems Constitutional: No Symptoms Musculoskeletal: No Symptoms Skin: Cellulitis Neurological: No Symptoms All Other Systems: Reviewed and Negative - Past Medical History Pertinent Past Medical History: Yes Neurological History: No Pertinent History ENT History: Cataracts Cardiac History: Hypertension Respiratory History: Asthma, Other Endocrine Medical History: Other Musculoskeletal History: Osteoarthritis GI Medical History: Gallbladder Disease History: No Pertinent History Psycho-Social History: No Pertinent History Female Reproductive Disorders: No Pertinent History Other Medical History: PATIENT IS CURRENTLY BEING SEEN BY PT FOR BACK PAIN, OT FOR SHOULDER PAIN. KIDNEY PROBLEMS, LEAKY HEART VALVES, POSITIVE TB, LUPUS, 2 BACK SURGERIES, B TKA, B FOOT SURGERIES. - Past Surgical History Past Surgical History: Yes Neuro Surgical History: No Pertinent History Cardiac: Cardiac Catheterization, Other Respiratory: No Pertinent History Gastrointestinal: No Pertinent History Musculoskeletal: Joint Replacement Female Surgical History: Hysterectomy, Lumpectomy Other Surgical History: open heart ticuspid valve repair. right total knee replacement and bilateral foot implants. lumbar surgery x2. denies appendectomy. T&A. bilateral cataract - Social History Smoking Status: Never smoker Exposure to second hand smoke: No Drug Use: none - Social Determinants of Health Will the patient participate in the screening: Yes Do you worry about a steady place to live?: No Do you have any problems with any of the following?: No known problems In the past 12 months,have you had to go without utilities?: No Transportation Issues: No Has anyone in your support network made you feel unsafe?: No Have you or anyone in your house had to go w/o enough food: No - Nursing Vital Signs Nursing Vital Signs: Initial Vital Signs Temperature 99.7 F 04/26/25 07:27 Pulse Rate 75 04/26/25 07:27 Blood Pressure 166/81 04/26/25 07:27 O2 Sat by Pulse Oximetry 93 L 04/26/25 07:27 Pain Scale Pain Intensity 10 - Physical Exam General Appearance: no apparent distress Legs Exam: bilateral leg: non-tender, normal inspection, normal range of motion Knees Exam: bilateral knee: non-tender, normal inspection, normal range of motion Ankle Exam: bilateral ankle: non-tender, normal inspection, normal range of motion Foot Exam: bilateral foot: non-tender, normal inspection, normal range of motion Skin Exam: other (Area of erythema on the posterior leg.There is what appears to be a deeper subcutaneous firm nodular area. It could be an early abscess.There is some erythema surrounding the area and it is little bit warm to the touch.) SpO2: 86 - Course Nursing assessment & vital signs reviewed: Yes Ordered Tests: Active Orders 24 hr Category Date Time Status Ultrasound Unilateral Extremities [VENOUS UNILAT/ Exams 04/26/25 07:34 Completed LIMITED EXTREMIT] [US] Stat CBC W DIFF Stat Lab 04/26/25 07:49 Completed Lab/Rad Data: Laboratory Result Diagrams 04/26/25 07:49 Laboratory Results 04/26/25 Range/Units 07:49 WBC 9.0 (3.98-10.04) x10^3/uL RBC 3.23 L (3.93-5.22) x10^6/uL Hgb 10.6 L (11.2-15.7) g/dL Hct 32.5 L (34.1-44.9) % MCV 100.6 H (79.4-94.8) fL MCH 32.8 H (25.6-32.2) pg MCHC 32.6 (32.2-35.5) g/dL RDW 12.9 (11.7-14.4) % Plt Count 164 L (182-369) x10^3/uL MPV 9.3 L (9.4-12.3) fL Gran % 79.2 H (34.0-71.1) % Immature Gran % (Auto) 0.4 (0.001-0.429) % Nucleat RBC Rel Count 0.0 (0.00-0.2) % Eos # (Auto) 0.01 L (0.04-0.36) x10^3/uL Immature Gran # (Auto) 0.04 H (0.001-0.031) x10^3u/L Absolute Lymphs (auto) 1.16 L (1.18-3.74) x10^3/uL Absolute Monos (auto) 0.66 (0.24-0.86) x10^3/uL Absolute Nucleated RBC 0.00 (0.00-0.012) x10^3u/L Lymphocytes % 12.8 L (19.3-51.7) % Monocytes % 7.3 (4.7-12.5) % Eosinophils % 0.1 L (0.7-5.8) % Basophils % 0.2 (0.1-1.2) % Absolute Granulocytes 7.14 H (1.56-6.13) x10^3/uL Basophils # 0.02 (0.01-0.08) x10^3/uL - Progress Progress: unchanged Progress Note: Patient was concerned about a blood clot. We went ahead and got an ultrasound. There was no acute findings of vascular occlusion. The area looks like infectious. I believe that that is what it is. I am going to have her use warm compresses and I am going to start her onClindamycin. I believe that it could possibly be MRSA. Because of her age of not going to give Bactrim. 04/26/25 08:44 Will see patient in: hospital (observation) - Departure Departure Disposition: Home Clinical Impression: Cellulitis of left leg without foot Condition: Stable Critical Care Time: No Referrals: MICHAEL WANG MD [Primary Care Provider, [facility]] - Follow up/PCP as directed Instructions: Cellulitis (skin infection) in adults - Discharge instructions
== END 2025-04-26 08:55 | disposition home or self-care (01) ==
LOC: ED 07:19
DX: L03.116 Cellulitis of left lower limb (principal); M79.605 Pain in left leg; I10 Essential (primary) hypertension; Z79.01 Long term (current) use of anticoagulants; Z79.899 Other long term (current) drug therapy

== ENCOUNTER 2025-04-28 15:14 | Observation (INO) | payer MEDICARE ==
[2025-04-28] MEDS ORDERED: PIPERACILLIN/TAZOBACTAM IV ONE (16:23)
[2025-04-28] MEDS ORDERED: XYLOCAINE 1% HCL 20 ML MDV ONE (16:24)
[2025-04-28] MEDS: LIDOCAINE HCL 1% 50 MG/5 ML VL IJ ONE (16:27)
[2025-04-28 16:39] LABS: BASOPHIL % 0.4 % (0.1-1.2); Basophil (Absolute #) 0.03 x10^3/uL (0.01-0.08); Eosinophil (Absolute #) 0.07 x10^3/uL (0.04-0.36); Hematocrit 34.9 % (34.1-44.9); Hemoglobin 11.1 g/dL (11.2-15.7); IMMATURE GRAN # 0.04 x10^3u/L (0.001-0.031); IMMATURE GRAN % 0.5 % (0.001-0.429); Lymphocyte (Absolute #) 1.45 x10^3/uL (1.18-3.74); Mean Corpuscular Hemoglobin 32.4 pg (25.6-32.2); Mean Corpuscular Hgb Concent. 31.8 g/dL (32.2-35.5); Monocyte (Absolute #) 0.55 x10^3/uL (0.24-0.86); NUCLEATED RBC # 0.00 x10^3u/L (0.00-0.012); NUCLEATED RBC % 0.0 % (0.00-0.2); Platelet Count 199 x10^3/uL (182-369); Red Blood Count 3.43 x10^6/uL (3.93-5.22); White Blood Count 8.6 x10^3/uL (3.98-10.04)
[2025-04-28 16:52] LABS: Calcium 10.1 mg/dL (8.4-10.2); Carbon Dioxide 34.0 mmol/L (22-30); Creatinine 1 1.2 mg/dL (0.52-1.04); EST GLOMERULAR FILTRATION RATE 44.4 ML/MIN; Glucose 98.0 mg/dL (74-106); Potassium 3.1 mmol/L (3.5-5.1); SGOT/AST 31.0 U/L (14-36); SGPT/ALT 13.0 U/L (0-35); Total Protein 7.6 g/dL (6.3-8.2)
[2025-04-28] MEDS: Klor Con PO ONE (17:09)
[2025-04-28] MEDS ORDERED: Klor Con ONE (17:09)
[2025-04-28] MEDS ORDERED: TYLENOL EXTRA STRENGTH 500 MG ONE (17:10)
[2025-04-28] MEDS: TYLENOL EXTRA STRENGTH 500 MG PO STA (17:10)
--- NOTE | 2025-04-28 17:15 | ERPHSYRPT ---
- History of Present Illness Source: patient Exam Limitations: no limitations Patient Subjective Stated Complaint: This is pt's 3rd visit for thrombitis and continues to have pain and is demanding something be done Triage Nursing Assessment: Pt was brought to the ER by her daughter, hypertensive, rates pain as 10/10, pulses normal, skin n/w/d, abcess appearing area to the back of her left calf, US done a few days ago and was negative for DVT, was placed on Clindamycin for thrombitis, doesn't appear to be in any distress Physician History: 84-year-old female presents with left leg pain. Patient has been seen twice for her symptoms earlier this week. Patient states that she has been having worsening pain over her left lower extremity. She has noticed worsening warmth, erythema, streaking up her leg. She has been on clindamycin since her last visit on the . She states that the area has become more fluctuant and there is more erythema and redness. Allergies/Adverse Reactions: codeine [Codeine] Allergy (Mild, Verified 04/28/25 15:52) Nausea cortisone [Cortisone] Allergy (Mild, Verified 04/28/25 15:52) Nausea epinephrine Allergy (Mild, Verified 04/28/25 15:52) palpatations Iodinated Contrast Media [IV Dye, Iodine Containing Contrast ] Allergy (Mild, Verified 04/28/25 15:52) Nausea meperidine HCl [From Demerol] Allergy (Mild, Verified 04/28/25 15:52) Nausea propoxyphene HCl [From Darvon] Allergy (Mild, Verified 04/28/25 15:52) Nausea aspirin [From [employer]] Allergy (Verified 04/28/25 15:52) all arthritis meds cause nausea diphenhydramine HCl [From [employer]] Allergy (Verified 04/28/25 15:52) all arthritis meds cause nausea ibuprofen [From [employer]] Allergy (Verified 04/28/25 15:52) all arthritis meds cause nausea tuberculin, purified protein deriva [From Aplisol] Adverse Reaction (Verified 04/28/25 15:52) Home Medications: Estrogens,Conjugated [Premarin] 0.625 mg PO 3XW 04/08/12 [History] Cholecalciferol (Vitamin D3) [Vitamin D3] 1,000 unit PO DAILY 03/25/18 [History] Cyanocobalamin 1000 Mcg/ml [Cyanocobalamin B-12 1000 MCG/ML] 1,000 mcg IM UD 03/25/18 [History] Hydrocodone/Acetaminophen [[place] 7.5-325 Tablet] 1 each PO Q4H PRN 03/25/18 [History] Ipratropium [place] 0.5 mg [Atrovent 0.5MG NEBULE] 0.5 mg IH QID 03/25/18 [History] Metoprolol Tartrate 50 mg [Lopressor 50 MG] 50 mg PO DAILY 03/25/18 [History] Multivitamin W-Minerals/Lutein [Centrum Silver Tablet] 1 tab PO DAILY 03/25/18 [History] Oxycodone HCl 5 mg Ir [Oxy-IR 5 MG] 5 mg PO Q4H PRN 03/25/18 [History] Rivaroxaban 10 mg Tablet [Xarelto 10 mg Tablet] 10 mg PO DAILY 03/25/18 [History] Tiotropium [place] Inhaler [Spiriva 18 Mcg/Cap Inhaler] 1 puff IH DAILY 03/25/18 [History] Hx Tetanus, Diphtheria Vaccination/Date Given: Yes Hx Influenza Vaccination/Date Given: Yes (2010) Hx Pneumococcal Vaccination/Date Given: No Travel Risk - International Travel Have you traveled outside of the country in past 3 weeks: No - Emerging Infectious Disease Are you exhibiting symptoms associated with any current EIDs: No - Review of Systems Constitutional: No Fever, No Chills Eyes: No Symptoms Ears, Nose, & Throat: No Symptoms Respiratory: No Cough, No Dyspnea Cardiac: No Chest Pain, No Edema, No Syncope Abdominal/Gastrointestinal: No Abdominal Pain, No Nausea, No Vomiting, No Diarrhea Genitourinary Symptoms: No Dysuria Musculoskeletal: No Back Pain, No Neck Pain Skin: Cellulitis, Induration, Other (Abscess), No Rash Neurological: No Dizziness, No Focal Weakness, No Sensory Changes Psychological: No Symptoms Endocrine: No Symptoms All Other Systems: Reviewed and Negative - Past Medical History Pertinent Past Medical History: Yes Neurological History: No Pertinent History ENT History: Cataracts Cardiac History: Hypertension Respiratory History: Asthma, Other Endocrine Medical History: Other Musculoskeletal History: Osteoarthritis GI Medical History: Gallbladder Disease History: No Pertinent History Psycho-Social History: No Pertinent History Female Reproductive Disorders: No Pertinent History Other Medical History: KIDNEY PROBLEMS, LEAKY HEART VALVES, POSITIVE TB, LUPUS, 2 BACK SURGERIES, B TKA, B FOOT SURGERIES. - Past Surgical History Past Surgical History: Yes Neuro Surgical History: No Pertinent History Cardiac: Cardiac Catheterization, Other Respiratory: No Pertinent History Gastrointestinal: No Pertinent History Musculoskeletal: Joint Replacement Female Surgical History: Hysterectomy, Lumpectomy Other Surgical History: open heart ticuspid valve repair. right total knee replacement and bilateral foot implants. lumbar surgery x2. denies appendectomy. T&A. bilateral cataract - Social History Smoking Status: Never smoker Exposure to second hand smoke: No Drug Use: none - Social Determinants of Health Will the patient participate in the screening: Yes Do you worry about a steady place to live?: No Do you have any problems with any of the following?: No known problems In the past 12 months,have you had to go without utilities?: No Transportation Issues: No Has anyone in your support network made you feel unsafe?: No Have you or anyone in your house had to go w/o enough food: No - Nursing Vital Signs Nursing Vital Signs: Initial Vital Signs Temperature 97.7 F 04/28/25 15:42 Pulse Rate 73 04/28/25 15:42 Blood Pressure 174/96 04/28/25 15:42 O2 Sat by Pulse Oximetry 96 04/28/25 15:42 Pain Scale Pain Intensity 10 - Physical Exam General Appearance: no apparent distress, alert Eye Exam: PERRL/EOMI, eyes nml inspection Ears, Nose, Throat Exam: normal ENT inspection, pharynx normal, moist mucous membranes Neck Exam: normal inspection, non-tender, supple, full range of motion Respiratory Exam: normal breath sounds, lungs clear, No respiratory distress Cardiovascular Exam: regular rate/rhythm, normal heart sounds Gastrointestinal/Abdomen Exam: soft, mass, No tenderness Back Exam: normal inspection, normal range of motion, No CVA tenderness, No vertebral tenderness Extremity Exam: normal inspection, normal range of motion, swelling (Bilateral) Neurologic Exam: alert, oriented x 3, cooperative, normal mood/affect, sensation nml, No motor deficits Skin Exam: normal color, dry, other (Warmth, erythema, fluctuant abscess of her left lower extremity, there is streaking up her leg) SpO2: 97 Procedures - Incision and Drainage Time of Procedure: 17:00 Anesthesia: 1% Lidocaine cc's of anesthesia: 4 Blade Size: 11 I & D Procedure: betadine prep Results: large amount pus Ordered Tests: Active Orders 24 hr Category Date Time Status Admit as Inpatient ROUTINE Care 04/28/25 16:36 Active Call Admit Doctor for Orders ON ADMISSION Care 04/28/25 16:36 Active Code Status Order ROUTINE Care 04/28/25 16:36 Active IV Insertion STAT Care 04/28/25 16:06 Active Telemetry q6h Care 04/28/25 16:37 Active BLOOD CULTURE Stat Lab 04/28/25 16:38 Received CBC W DIFF Stat Lab 04/28/25 16:38 Completed CMP Stat Lab 04/28/25 16:38 Completed CULTURE,WOUND Stat Lab 04/28/25 16:07 Ordered Lactic Acid Stat Lab 04/28/25 16:30 Completed Transfer Order Routine Transfer 04/28/25 Ordered Medication Summary Generic Name Dose Route Start Last Admin Trade Name Freq PRN Reason Stop Dose Admin Acetaminophen 500 mg 04/28/25 17:09 Acetaminophen 500 Mg Tablet PO 04/28/25 17:10 STAT STA Discontinued Medications Generic Name Dose Route Start Last Admin Trade Name Freq PRN Reason Stop Dose Admin Piperacillin Sod/Tazobactam 100 mls @ 200 mls/hr 04/28/25 16:09 04/28/25 16:41 Sod 3.375 gm/ Sodium Chloride IV 04/28/25 16:38 200 ml/hr STAT STA 200 mls/hr Administration Sodium Chloride Confirm 04/28/25 16:24 Sodium Chloride 0.9% Administered 04/28/25 16:25 Dose 100 mls @ ud .ROUTE .STK-MED ONE Lidocaine HCl 10 mg 04/28/25 16:08 04/28/25 16:27 Lidocaine Hcl/Pf 50 Mg/5 Ml Vial IJ 04/28/25 16:09 10 mg ONCE ONE Administration Lidocaine HCl Confirm 04/28/25 16:24 Lidocaine Hcl 1% 20 Ml Mdv 20 Ml Ml Administered 04/28/25 16:25 Dose 1 ml .ROUTE .STK-MED ONE Piperacillin Sod/Tazobactam Sod Confirm 04/28/25 16:23 Piperacillin/Tazobactam Sodium 3.375 Gm Vial Administered 04/28/25 16:24 Dose 3.375 gm IV .STK-MED ONE Potassium Chloride 20 meq 04/28/25 17:07 Potassium Chloride Tab 10 Meq Tab PO 04/28/25 17:08 STAT ONE Lab/Rad Data: Laboratory Result Diagrams 04/28/25 16:38 04/28/25 16:38 Laboratory Results 04/28/25 04/28/25 04/28/25 Range/Units 16:38 16:38 16:30 WBC 8.6 (3.98-10.04) x10^3/uL RBC 3.43 L (3.93-5.22) x10^6/uL Hgb 11.1 L (11.2-15.7) g/dL Hct 34.9 (34.1-44.9) % MCV 101.7 H (79.4-94.8) fL MCH 32.4 H (25.6-32.2) pg MCHC 31.8 L (32.2-35.5) g/dL RDW 12.7 (11.7-14.4) % Plt Count 199 (182-369) x10^3/uL MPV 9.4 (9.4-12.3) fL Gran % 74.9 H (34.0-71.1) % Immature Gran % (Auto) 0.5 H (0.001-0.429) % Nucleat RBC Rel Count 0.0 (0.00-0.2) % Eos # (Auto) 0.07 (0.04-0.36) x10^3/uL Immature Gran # (Auto) 0.04 H (0.001-0.031) x10^3u/L Absolute Lymphs (auto) 1.45 (1.18-3.74) x10^3/uL Absolute Monos (auto) 0.55 (0.24-0.86) x10^3/uL Absolute Nucleated RBC 0.00 (0.00-0.012) x10^3u/L Lymphocytes % 17.0 L (19.3-51.7) % Monocytes % 6.4 (4.7-12.5) % Eosinophils % 0.8 (0.7-5.8) % Basophils % 0.4 (0.1-1.2) % Absolute Granulocytes 6.41 H (1.56-6.13) x10^3/uL Basophils # 0.03 (0.01-0.08) x10^3/uL Sodium 136 (135-145) mmol/L Potassium 3.1 L (3.5-5.1) mmol/L Chloride 96 L (98-107) mmol/L Carbon Dioxide 34 H (22-30) mmol/L Anion Gap 9.7 (5-15) MEQ/L BUN 16 (7-17) mg/dL Creatinine 1.20 H (0.52-1.04) mg/dL Estimated GFR 44.4 ML/MIN Glucose 98 (74-106) mg/dL Lactic Acid 0.8 (0.4-2.0) Calcium 10.1 (8.4-10.2) mg/dL Total Bilirubin 0.80 (0.2-1.3) mg/dL AST 31 (14-36) U/L ALT 13 (0-35) U/L Alkaline Phosphatase 63 (38-126) U/L Serum Total Protein 7.6 (6.3-8.2) g/dL Albumin 4.2 (3.5-5.0) g/dL - Progress Progress: improved Progress Note: 04/28/25 17:11 84-year-old female presents with left leg pain. Differential diagnoses including but not limited to cellulitis, abscess, sepsis. Patient's vitals are stable. Patient does have area of warmth, erythema, fluctuant abscess over left lower extremity. She has been on clindamycin and states that the area has been getting worse with some streaking up her leg. She does have previous history of valve replacement. She decision-making was had with the patient agreeable to I&D and admission for IV antibiotics. Patient [place] started on Zosyn. Blood work ordered including lactate and cultures. Patient had I&D of her left lower extremity with moderate to large amount of purulent drainage. Wound cultures were taken. I spoke with hospitalist who was agreeable to admission for cellulitis. Discussed with : Other (Dr. Carrizales) Will see patient in: hospital (observation) Counseled pt/family regarding: lab results, diagnosis - Departure Departure Disposition: Observation Clinical Impression: Cellulitis Condition: Stable Critical Care Time: No Referrals: MICHAEL WANG MD [Primary Care Provider, INTER[facility] MEDIC[facility]] - Follow up/PCP as directed
--- NOTE | 2025-04-28 18:42 | PCM.HP ---
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 The patient reports increasing pain, warmth, and erythema in the affected leg, along with streaking extending proximally. She has been taking clindamycin since her last visit on April 25; however, she states that the area has worsened since starting the antibiotics, becoming more fluctuant with increased redness and swelling. She expresses frustration at the lack of symptom relief despite multiple emergency room visits. She denies any chest pain, shortness of breath, abdominal pain, nausea, vomiting, or diarrhea. In the emergency department, she was started on Zosyn, and her potassium was noted to be low, with replacement initiated. Labs will continue to be trended following replacement. The patient is irritable and states she does not want to be in the hospital and would prefer to go home as s oon as possible. She has been informed that she will remain admitted overnight for further observation and treatment, with reassessment to occur daily. - Review of Systems Constitutional: Fever (2 days ago of 99.9), No Chills Eyes: No Symptoms Ears, Nose, & Throat: No Symptoms Respiratory: No Cough, No Short Of Breath Cardiac: Edema (BLLE), No Chest Pain, No Syncope Abdominal/Gastrointestinal: No Abdominal Pain, No Nausea, No Vomiting, No Diarrhea Genitourinary Symptoms: No Dysuria Musculoskeletal: No Back Pain, No Neck Pain Skin: Skin Lesions (LLE), No Rash Neurological: No Dizziness, No Focal Weakness, No Sensory Changes Psychological: Other (irritable) Endocrine: No Symptoms Hematologic/Lymphatic: No Symptoms Immunological/Allergic: No Symptoms Medications & Allergies Home Medications: Home Medication List Estrogens,Conjugated [Premarin] 0.625 mg PO 3XW 04/08/12 [History Confirmed 04/28/25] Cholecalciferol (Vitamin D3) [Vitamin D3] 1,000 unit PO DAILY 03/25/18 [History Confirmed 04/28/25] Cyanocobalamin 1000 Mcg/ml [Cyanocobalamin B-12 1000 MCG/ML] 1,000 mcg IM UD 03/25/18 [History Confirmed 04/28/25] Multivitamin W-Minerals/Lutein [Centrum Silver Tablet] 1 tab PO DAILY 03/25/18 [History Confirmed 04/28/25] Tiotropium [place] Inhaler [Spiriva 18 Mcg/Cap Inhaler] 1 puff IH DAILY 03/25/18 [History Confirmed 04/28/25] clindamycin HCL [Clindamycin HCl] 300 mg PO QID #28 cap 04/26/25 [Rx Confirmed 04/28/25] Hydrocodone/Acetaminophen [Hydrocodone-Acetamin 10-325 mg] 1 each PO Q6HPRN PRN 04/28/25 [History Confirmed 04/28/25] Allergies/Adverse Reactions: Allergies Allergy/AdvReac Type Severity Reaction Status Date / Time codeine [Codeine] Allergy Mild Nausea Verified 04/28/25 15:52 cortisone [Cortisone] Allergy Mild Nausea Verified 04/28/25 15:52 epinephrine Allergy Mild palpatation Verified 04/28/25 15:52 s Iodinated Contrast Media Allergy Mild Nausea Verified 04/28/25 15:52 [IV Dye, Iodine Containing Contrast ] meperidine HCl [From Demerol] Allergy Mild Nausea Verified 04/28/25 15:52 propoxyphene HCl Allergy Mild Nausea Verified 04/28/25 15:52 [From Darvon] aspirin Allergy Verified 04/28/25 15:52 [From [facility]] diphenhydramine HCl Allergy Verified 04/28/25 15:52 [From [facility]] ibuprofen Allergy Verified 04/28/25 15:52 [From [facility]] tuberculin, purified protein AdvReac Verified 04/28/25 15:52 deriva [From Aplisol] - Past Medical History Past Medical History: Yes Neurological History: No Pertinent History ENT History: Cataracts Cardiac History: Hypertension Respiratory History: Asthma, Other Endocrine Medical History: Other Musculoskelatal History: Osteoarthritis GI Medical History: Gallbladder Disease History: No Pertinent History Pyscho-Social History: No Pertinent History Reproductive Disorders: No Pertinent History Comment: KIDNEY PROBLEMS, LEAKY HEART VALVES, POSITIVE TB, LUPUS, 2 BACK SURGERIES, B TKA, B FOOT SURGERIES. - Past Surgical History Past Surgical History: Yes Neuro Surgical History: No Pertinent History Cardiac History: Cardiac Catheterization, Other Respiratory Surgery: No Pertinent History GI Surgical History: No Pertinent History Musculskeletal Surgical Hx: Joint Replacement Female Surgical History: Hysterectomy, Lumpectomy Other Surgical History: open heart ticuspid valve repair. right total knee replacement and bilateral foot implants. lumbar surgery x2. denies appendectomy. T&A. bilateral cataract Significant Family History: no pertinent family hx - Social History Smoking Status: Never smoker Exposure to second hand smoke: No Alcohol: None Drug Use: none - Social Determinants of Health Will the patient participate in the screening: Yes Do you worry about a steady place to live?: No Do you have any problems with any of the following?: No known problems In the past 12 months,have you had to go without utilities?: No Have you or anyone in your house had to go without enough: No Transportation Issues: No Has anyone in your support network made you feel unsafe?: No Does the patient want assistance with any of the above?: No - Physical Exam Vital Signs: Vital Signs - 24 hr Temp Pulse Resp BP BP Pulse Ox 04/28/25 17:43 97.6 F 70 16 147/90 99 04/28/25 17:32 97.6 F 70 16 147/90 99 04/28/25 17:14 97 04/28/25 17:00 178/100 97 04/28/25 16:31 185/99 87 L 04/28/25 16:01 168/66 97 04/28/25 15:46 174/96 96 04/28/25 15:42 97.7 F 73 174/96 96 General Appearance: no apparent distress, alert Neurologic Exam: alert, oriented x 3, cooperative, nml cerebellar function, nml station & gait, sensation nml, agitation, No motor deficits Eye Exam: PERRL/EOMI, eyes nml inspection Ears, Nose, Throat Exam: normal ENT inspection, TMs normal, pharynx normal, moist mucous membranes Neck Exam: normal inspection, non-tender, supple, full range of motion Respiratory Exam: normal breath sounds, lungs clear, No respiratory distress Cardiovascular Exam: regular rate/rhythm, normal heart sounds, normal peripheral pulses, edema (+ 3 pitting BLLE) Gastrointestinal/Abdomen Exam: soft, normal bowel sounds, No tenderness, No mass Back Exam: normal inspection, normal range of motion, No CVA tenderness, No vertebral tenderness Extremity Exam: normal inspection, normal range of motion, pelvis stable, inflammation, swelling, tenderness (LLE with red streaks) Skin Exam: normal color, warm, dry, No rash Lymphatic Exam: No adenopathy Results - Labs Lab/Micro Results: Lab Results-Last 24 Hours 04/28/25 04/28/25 04/28/25 Range/Units 16:30 16:38 16:38 WBC 8.6 (3.98-10.04) x10^3/uL RBC 3.43 L (3.93-5.22) x10^6/uL Hgb 11.1 L (11.2-15.7) g/dL Hct 34.9 (34.1-44.9) % MCV 101.7 H (79.4-94.8) fL MCH 32.4 H (25.6-32.2) pg MCHC 31.8 L (32.2-35.5) g/dL RDW 12.7 (11.7-14.4) % Plt Count 199 (182-369) x10^3/uL MPV 9.4 (9.4-12.3) fL Gran % 74.9 H (34.0-71.1) % Immature Gran % (Auto) 0.5 H (0.001-0.429) % Nucleat RBC Rel Count 0.0 (0.00-0.2) % Eos # (Auto) 0.07 (0.04-0.36) x10^3/uL Immature Gran # (Auto) 0.04 H (0.001-0.031) x10^3u/L Absolute Lymphs (auto) 1.45 (1.18-3.74) x10^3/uL Absolute Monos (auto) 0.55 (0.24-0.86) x10^3/uL Absolute Nucleated RBC 0.00 (0.00-0.012) x10^3u/L Lymphocytes % 17.0 L (19.3-51.7) % Monocytes % 6.4 (4.7-12.5) % Eosinophils % 0.8 (0.7-5.8) % Basophils % 0.4 (0.1-1.2) % Absolute Granulocytes 6.41 H (1.56-6.13) x10^3/uL Basophils # 0.03 (0.01-0.08) x10^3/uL Sodium 136 (135-145) mmol/L Potassium 3.1 L (3.5-5.1) mmol/L Chloride 96 L (98-107) mmol/L Carbon Dioxide 34 H (22-30) mmol/L Anion Gap 9.7 (5-15) MEQ/L BUN 16 (7-17) mg/dL Creatinine 1.20 H (0.52-1.04) mg/dL Estimated GFR 44.4 ML/MIN Glucose 98 (74-106) mg/dL Lactic Acid 0.8 (0.4-2.0) Calcium 10.1 (8.4-10.2) mg/dL Total Bilirubin 0.80 (0.2-1.3) mg/dL AST 31 (14-36) U/L ALT 13 (0-35) U/L Alkaline Phosphatase 63 (38-126) U/L Serum Total Protein 7.6 (6.3-8.2) g/dL Albumin 4.2 (3.5-5.0) g/dL Assessment/Plan (1) Cellulitis of left leg without foot Current Visit: No Status: Acute Assessment & Plan: - Zosyn and vanc IV - Consider podiatry consult Wednesday - XR LLE - Pt does not know how or why this started no known injury - Elevate LLE to decrease edema - Continue home narcotic pain med as she finds this helpful - CBC, CMP reviewed - BC x2 pending - WC pending - Area opened by ER provider with purulent drainage Code(s): L03.116 - CELLULITIS OF LEFT LOWER LIMB (2) LISA (acute kidney injury) Current Visit: Yes Status: Acute Assessment & Plan: - Creat 1.20- baseline 0.86- trend - Pt has BLLE edema- will hold IV fluids for now Code(s): N17.9 - ACUTE KIDNEY FAILURE, UNSPECIFIED (3) Hypokalemia Current Visit: Yes Status: Acute Assessment & Plan: - K+ 3.2 in ER - Replace per protocol- trend - Tele Code(s): E87.6 - HYPOKALEMIA (4) Edema of both lower extremities Current Visit: Yes Status: Acute Assessment & Plan: - elevate legs Code(s): R60.0 - LOCALIZED EDEMA (5) HTN (hypertension) Current Visit: Yes Status: Chronic Assessment & Plan: - BP stable, not currently on any meds Code(s): I10 - ESSENTIAL (PRIMARY) HYPERTENSION (6) Chronic pain Current Visit: Yes Status: Chronic Assessment & Plan: - 2:2 OA - Continue home [place] VTE: Heparin PPI: Protonix Next of KIN: DaughterArianna Farooq D/C plan: 2-3 days Code status: Full Mgnt and plan of care time: > 45 minutes Code(s): G89.29 - OTHER CHRONIC PAIN Telemedicine Encounter - Telemedicine Encounter Telemedicine Encounter: "The entirety of this encounter was performed via Telemedicine" This visit was performed using real-time audio and video connection between my location and thepatients locationwith the assistance of a surrogateat the patients location. Written or verbal consent was obtained from the patient/guardian to perform this visit usingsynchronoustelemedicine technology. Any patient questions regarding the telemedicine interaction were answered.
[2025-04-28] MEDS ORDERED: NORCO 10-325 MG PO PRN (18:45)
[2025-04-28] MEDS ORDERED: Cyanocobalamin B-12 1000 MCG/ML IM SCH (18:45)
[2025-04-28] MEDS: Klor Con PO SCH (19:45)
--- NOTE | 2025-04-28 20:50 | XRAY ---
CLINICAL HISTORY: LLE wound COMPARISON: none TECHNIQUE: AP and lateral view of the left lower leg was performed. FINDINGS: Bone Structure: Diffuse osteopenia No evidence of acute fractures or dislocations. Joint Spaces: Total knee replacement with hardware seen in place, no signs of complications soft tissue swelling at the upper and mid leg IMPRESSION: 1. Diffuse osteopenia 2. No evidence of acute fractures or dislocations. 3. Total knee replacement with hardware seen in place, no signs of complications 4. Soft tissue swelling at the upper and mid-leg,clinical correlation is recommended. DISCLAIMER:A subtle bone abnormality or fracture may not be readily apparent on x-rays, thus clinical correlation and further imaging including follow up CT, MRI, or follow up x-rays are advised as needed. Electronically Signed by: Ismael Granados MD. (04/28/2025 20:48:14 EDT)
[2025-04-28] MEDS: PHARMACY DOSING REQUIRED: VANCOMYCIN IV STA (21:08)
[2025-04-28] MEDS: VANCOMYCIN 1 GRAM/200 ML BAG 1 GM/200 ML PIGGYBACK IV ONE (21:34)
[2025-04-28] MEDS: HEPARIN 5000 UNITS/0.5 ML (HIGH RISK MED) SQ SCH (21:36)
[2025-04-29 04:21] VITALS: RESP 16
[2025-04-29] MEDS: NORCO 5/325 MG PO ONE (05:58)
[2025-04-29] MEDS ORDERED: TYLENOL 325 MG PO PRN (06:10)
[2025-04-29 06:17] LABS: Hematocrit 29.9 % (34.1-44.9); Hemoglobin 9.5 g/dL (11.2-15.7); Mean Corpuscular Hemoglobin 32.0 pg (25.6-32.2); Mean Corpuscular Hgb Concent. 31.8 g/dL (32.2-35.5); Platelet Count 181 x10^3/uL (182-369); Red Blood Count 2.97 x10^6/uL (3.93-5.22); White Blood Count 6.0 x10^3/uL (3.98-10.04)
[2025-04-29 06:39] LABS: Calcium 9.4 mg/dL (8.4-10.2); Carbon Dioxide 29.0 mmol/L (22-30); Creatinine 1 1.01 mg/dL (0.52-1.04); EST GLOMERULAR FILTRATION RATE 54.6 ML/MIN; Glucose 86.0 mg/dL (74-106); Potassium 4.3 mmol/L (3.5-5.1); SGOT/AST 24.0 U/L (14-36); SGPT/ALT 10.0 U/L (0-35); Total Protein 5.9 g/dL (6.3-8.2)
[2025-04-29] MEDS ORDERED: Spiriva 18 Mcg/Cap Inhaler IH SCH (10:00)
[2025-04-29] MEDS ORDERED: VITAMIN D PO SCH (10:00)
[2025-04-29] MEDS: Zetia 10 MG PO SCH (10:33)
[2025-04-29] MEDS: LASIX 20 MG PO SCH (10:35)
[2025-04-29] MEDS: COREG 12.5 MG PO SCH (10:35)
[2025-04-29] MEDS: PLAVIX Tablet PO SCH (10:35)
[2025-04-29] MEDS: Ditropan XL 5 MG PO SCH (10:37)
[2025-04-29] MEDS: Protonix 40MG Tablet PO SCH (10:38)
[2025-04-29] MEDS: Cordarone 200 MG PO SCH (10:39)
[2025-04-29 10:41] VITALS: PULSE 62
[2025-04-29] MEDS: THERAGRAN MULTIVITAMIN PO SCH (10:45)
[2025-04-29] MEDS: Piperacillin/Tazobactam 2.25 GM 2.25 GM in Sodium Chloride 0.9% 100 ML IV SCH (10:45)
[2025-04-29] MEDS: Acidophilus TABLET PO SCH (10:45)
[2025-04-29] MEDS: VITAMIN D PO SCH (10:45)
--- NOTE | 2025-04-29 10:58 | PCM.DS ---
Discharge Summary Date of Admission: 04/28/25 17:25 Date of Discharge: 04/29/25 Admitting Physician: ILENE COATES MD Primary Care Provider: KATHLEEN,MICHAEL Allergies Allergies codeine [Codeine] Allergy (Mild, Verified 04/28/25 15:52) Nausea cortisone [Cortisone] Allergy (Mild, Verified 04/28/25 15:52) Nausea epinephrine Allergy (Mild, Verified 04/28/25 15:52) palpatations Iodinated Contrast Media [IV Dye, Iodine Containing Contrast ] Allergy (Mild, Verified 04/28/25 15:52) Nausea meperidine HCl [From Demerol] Allergy (Mild, Verified 04/28/25 15:52) Nausea propoxyphene HCl [From Darvon] Allergy (Mild, Verified 04/28/25 15:52) Nausea aspirin [From [facility]] Allergy (Verified 04/28/25 15:52) all arthritis meds cause nausea diphenhydramine HCl [From [facility]] Allergy (Verified 04/28/25 15:52) all arthritis meds cause nausea ibuprofen [From [employer]] Allergy (Verified 04/28/25 15:52) all arthritis meds cause nausea tuberculin, purified protein deriva [From Aplisol] Adverse Reaction (Verified 04/28/25 15:52) Hospital Summary - Hospital Course Hospital Course: 04/28/25 is a 84 year old female with a past medical history of cataracts, hypertension, asthma, osteoarthritis, chronic kidney disease, lupus, a leaky heart valve, and a prior positive tuberculosis test presents with worsening left lower extremity pain. 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 The patient reports increasing pain, warmth, and erythema in the affected leg, along with streaking extending proximally. She has been taking clindamycin since her last visit on April 25; however, she states that the area has worsened since starting the antibiotics, becoming more fluctuant with increased redness and swelling. She expresses frustration at the lack of symptom relief despite multiple emergency room visits. She denies any chest pain, shortness of breath, abdominal pain, nausea, vomiting, or diarrhea. In the emergency department, she was started on Zosyn, and her potassium was noted to be low, with replacement initiated. Labs will continue to be trended following replacement. The patient is irritable and states she does not want to be in the hospital and would prefer to go home as soon as possible. She has been informed that she will remain admitted overnight for further observation and treatment, with reassessment to occur daily. 04/29/25 The patient is resting in bed and reports feeling better today. She expressed a strong desire to be discharged and is agreeable to receiving IV antibiotics prior to discharge, after which she will transition to oral antibiotics. Her cellulitis has shown overall improvement. A venous Doppler performed two days ago was negative for DVT. She had previously failed outpatient antibiotics. A wound culture is positive for gram-negative organisms; sensitivities are pending. Blood cultures (x2) are also pending and will be followed on an outpatient basis. The patient had a temperature of 99.2F at 4 a.m. A left lower extremity X-ray showed no evidence of osteomyelitis but did reveal soft tissue edema. She denies any additional concerns at this time. Her daughter is present and agrees with the discharge plan. F/U with PCP this week. - Vitals & Intake/Output Vital Signs: Vital Signs Temperature 98.6 F 04/29/25 07:19 Pulse Rate 62 04/29/25 10:36 Respiratory Rate 16 04/29/25 10:36 Blood Pressure 165/73 04/29/25 07:19 O2 Sat by Pulse Oximetry 95 04/29/25 10:36 Intake & Output: Intake & Output 04/26/25 04/27/25 04/28/25 04/29/25 11:59 11:59 11:59 11:59 Intake Total 860 Balance 860 Weight 46.72 kg - Lab Result Diagrams: 04/29/25 05:15 04/29/25 05:15 Lab Results-Last 24 Hrs: Lab Results-Last 24 Hours 04/28/25 04/28/25 04/28/25 Range/Units 16:30 16:38 16:38 WBC 8.6 (3.98-10.04) x10^3/uL RBC 3.43 L (3.93-5.22) x10^6/uL Hgb 11.1 L (11.2-15.7) g/dL Hct 34.9 (34.1-44.9) % MCV 101.7 H (79.4-94.8) fL MCH 32.4 H (25.6-32.2) pg MCHC 31.8 L (32.2-35.5) g/dL RDW 12.7 (11.7-14.4) % Plt Count 199 (182-369) x10^3/uL MPV 9.4 (9.4-12.3) fL Gran % 74.9 H (34.0-71.1) % Immature Gran % (Auto) 0.5 H (0.001-0.429) % Nucleat RBC Rel Count 0.0 (0.00-0.2) % Eos # (Auto) 0.07 (0.04-0.36) x10^3/uL Immature Gran # (Auto) 0.04 H (0.001-0.031) x10^3u/L Absolute Lymphs (auto) 1.45 (1.18-3.74) x10^3/uL Absolute Monos (auto) 0.55 (0.24-0.86) x10^3/uL Absolute Nucleated RBC 0.00 (0.00-0.012) x10^3u/L Lymphocytes % 17.0 L (19.3-51.7) % Monocytes % 6.4 (4.7-12.5) % Eosinophils % 0.8 (0.7-5.8) % Basophils % 0.4 (0.1-1.2) % Absolute Granulocytes 6.41 H (1.56-6.13) x10^3/uL Basophils # 0.03 (0.01-0.08) x10^3/uL Sodium 136 (135-145) mmol/L Potassium 3.1 L (3.5-5.1) mmol/L Chloride 96 L (98-107) mmol/L Carbon Dioxide 34 H (22-30) mmol/L Anion Gap 9.7 (5-15) MEQ/L BUN 16 (7-17) mg/dL Creatinine 1.20 H (0.52-1.04) mg/dL Estimated GFR 44.4 ML/MIN Glucose 98 (74-106) mg/dL Hemoglobin A1c (4.5-6.0) % Lactic Acid 0.8 (0.4-2.0) Calcium 10.1 (8.4-10.2) mg/dL Magnesium (1.6-2.3) mg/dL Total Bilirubin 0.80 (0.2-1.3) mg/dL AST 31 (14-36) U/L ALT 13 (0-35) U/L Alkaline Phosphatase 63 (38-126) U/L Serum Total Protein 7.6 (6.3-8.2) g/dL Albumin 4.2 (3.5-5.0) g/dL 04/28/25 04/29/25 04/29/25 Range/Units 16:38 05:15 05:15 WBC 6.0 (3.98-10.04) x10^3/uL RBC 2.97 L (3.93-5.22) x10^6/uL Hgb 9.5 L (11.2-15.7) g/dL Hct 29.9 L (34.1-44.9) % MCV 100.7 H (79.4-94.8) fL MCH 32.0 (25.6-32.2) pg MCHC 31.8 L (32.2-35.5) g/dL RDW 12.8 (11.7-14.4) % Plt Count 181 L (182-369) x10^3/uL MPV 9.7 (9.4-12.3) fL Gran % (34.0-71.1) % Immature Gran % (Auto) (0.001-0.429) % Nucleat RBC Rel Count (0.00-0.2) % Eos # (Auto) (0.04-0.36) x10^3/uL Immature Gran # (Auto) (0.001-0.031) x10^3u/L Absolute Lymphs (auto) (1.18-3.74) x10^3/uL Absolute Monos (auto) (0.24-0.86) x10^3/uL Absolute Nucleated RBC (0.00-0.012) x10^3u/L Lymphocytes % (19.3-51.7) % Monocytes % (4.7-12.5) % Eosinophils % (0.7-5.8) % Basophils % (0.1-1.2) % Absolute Granulocytes (1.56-6.13) x10^3/uL Basophils # (0.01-0.08) x10^3/uL Sodium 136 (135-145) mmol/L Potassium 4.3 D (3.5-5.1) mmol/L Chloride 104 (98-107) mmol/L Carbon Dioxide 29 (22-30) mmol/L Anion Gap 7.7 (5-15) MEQ/L BUN 15 (7-17) mg/dL Creatinine 1.01 (0.52-1.04) mg/dL Estimated GFR 54.6 ML/MIN Glucose 86 (74-106) mg/dL Hemoglobin A1c 4.92 (4.5-6.0) % Lactic Acid (0.4-2.0) Calcium 9.4 (8.4-10.2) mg/dL Magnesium 2.1 (1.6-2.3) mg/dL Total Bilirubin 0.60 (0.2-1.3) mg/dL AST 24 (14-36) U/L ALT 10 (0-35) U/L Alkaline Phosphatase 60 (38-126) U/L Serum Total Protein 5.9 L (6.3-8.2) g/dL Albumin 3.1 L (3.5-5.0) g/dL Micro Results-Entire Visit: Microbiology 04/28/25 16:07 Wound Culture - Preliminary Leg - Left GRAM POSITIVE ID AND SENSITIVITY PENDING - Radiology Exams Ordered Rad Exams-Entire Visit: Radiology Procedures Category Date Time Status LOWER LEG Stat Exams 04/28/25 18:49 Completed - Procedures and Test Procedures and Tests throughout Hospitalization: Therapy Orders & Screens 04/29/25 10:36 Respiratory Therapy Assessment DAILY Comment: Diagnosis: cellulitis Discharge Exam General Appearance: no apparent distress, alert Neurologic Exam: alert, oriented x 3, normal mood/affect, nml cerebellar function, sensation nml, agitation, No motor deficits Eye Exam: PERRL, EOMI, eyes nml inspection Ears, Nose, Throat Exam: normal ENT inspection, pharynx normal, moist mucous membranes Neck Exam: normal inspection, non-tender, supple, full range of motion Respiratory Exam: normal breath sounds, lungs clear, No respiratory distress Cardiovascular Exam: regular rate/rhythm, normal heart sounds, edema (BLLE- non- pitting) Gastrointestinal/Abdomen Exam: soft, No tenderness, No mass Pelvic Exam: deferred Rectal Exam: deferred Back Exam: normal inspection, normal range of motion, No CVA tenderness, No vertebral tenderness Extremity Exam: normal inspection, normal range of motion Skin Exam: normal color, warm, dry, other (LLE lesion - erythema and edema improved from yesterday, + bloody drainage) Final Diagnosis/Problem List - Final Discharge Diagnosis/Problem (1) Cellulitis of left leg without foot Current Visit: No Status: Acute Code(s): L03.116 - CELLULITIS OF LEFT LOWER LIMB (2) LISA (acute kidney injury) Current Visit: Yes Status: Acute Code(s): N17.9 - ACUTE KIDNEY FAILURE, UNSPECIFIED (3) Hypokalemia Current Visit: Yes Status: Acute Code(s): E87.6 - HYPOKALEMIA (4) Edema of both lower extremities Current Visit: Yes Status: Acute Code(s): R60.0 - LOCALIZED EDEMA (5) HTN (hypertension) Current Visit: Yes Status: Chronic Code(s): I10 - ESSENTIAL (PRIMARY) HYPERTENSION (6) Chronic pain Current Visit: Yes Status: Chronic Assessment & Plan: 1) Cellulitis of left leg without foot Current Visit: No Status: Acute Assessment & Plan: - Zosyn and vanc IV - Consider podiatry consult Wednesday - XR LLE - Pt does not know how or why this started no known injury - Elevate LLE to decrease edema - Continue home narcotic pain med as she finds this helpful - CBC, CMP reviewed - BC x2 pending - WC pending - Area opened by ER provider with purulent drainage 04/29 - CBC, CMP reviewed - XR LLE: IMPRESSION: 1. Diffuse osteopenia 2. No evidence of acute fractures or dislocations. 3. Total knee replacement with hardware seen in place, no signs of complications 4. Soft tissue swelling at the upper and mid-leg,clinical correlation is recommended. - Will D/C with oral antibiotics - + Bloody drainage - Edema and erythema improved - US 3 days ago negative for DVT - + Temp 99.2 at 4am - BC x2 pending- will continue to follow - WC gram + sensitivity pending Code(s): L03.116 - CELLULITIS OF LEFT LOWER LIMB (2) LISA (acute kidney injury) Current Visit: Yes Status: Acute Assessment & Plan: - Creat 1.20- baseline 0.86- trend - Pt has BLLE edema- will hold IV fluids for now 04/29 - resolved Code(s): N17.9 - ACUTE KIDNEY FAILURE, UNSPECIFIED (3) Hypokalemia Current Visit: Yes Status: Acute Assessment & Plan: - K+ 3.2 in ER - Replace per protocol- trend - Tele 04/29 - resolved Code(s): E87.6 - HYPOKALEMIA (4) Edema of both lower extremities Current Visit: Yes Status: Acute Assessment & Plan: - elevate legs 04/29 - non-pitting Code(s): R60.0 - LOCALIZED EDEMA (5) HTN (hypertension) Current Visit: Yes Status: Chronic Assessment & Plan: - BP stable, not currently on any meds 04/29 - Will need further eval OP as BP has been elevated at times. Code(s): I10 - ESSENTIAL (PRIMARY) HYPERTENSION (6) Chronic pain Current Visit: Yes Status: Chronic Assessment & Plan: - 2:2 OA - Continue home [place] Code(s): G89.29 - OTHER CHRONIC PAIN - Discharge Discharge Date: 04/29/25 Disposition: Home, Self-Care Condition: Stable Prescriptions: Continue Cholecalciferol (Vitamin D3) [Vitamin D3] 1,000 unit PO DAILY Multivitamin W-Minerals/Lutein [Centrum Silver Tablet] 1 tab PO DAILY Cyanocobalamin 1000 Mcg/ml [Cyanocobalamin B-12 1000 MCG/ML] 1,000 mcg IM UD Tiotropium [place] Inhaler [Spiriva 18 Mcg/Cap Inhaler] 1 puff IH DAILY Hydrocodone/Acetaminophen [Hydrocodone-Acetamin 10-325 mg] 1 each PO Q6HPRN PRN PRN Reason: Pain Cholecalciferol (Vitamin D3) [Vitamin D] 1,000 unit PO DAILY Ipratropium [place] [Atrovent Hfa] 12.9 gm IH DAILY Amiodarone HCl 200 mg [Cordarone 200 MG] 200 mg PO DAILY Oxybutynin Chloride [Oxybutynin Chloride ER] 5 mg PO DAILY Furosemide [Lasix] 20 mg PO DAILY Clopidogrel Bisulfate [Clopidogrel] 75 mg PO DAILY Ezetimibe 10 mg [Zetia 10 MG] 10 mg PO DAILY Carvedilol 12.5 mg [Coreg 12.5 mg] 12.5 mg PO BID Pantoprazole Sodium 10 mg PO DAILY L.acidoph,Paracasei, B.lactis [Probiotic] 1 cap PO DAILY Discontinued clindamycin HCL [Clindamycin HCl] 300 mg PO QID #28 cap Instructions: Cellulitis (skin infection) in adults - Discharge instructions Additional Instructions: elevate legs Follow up with: MICHAEL WANG MD [Primary Care Provider, INTERNAL MEDICINE]
[2025-04-29] MEDS ORDERED: Atrovent 0.5MG NEBULE IH SCH (11:00)
[2025-04-29 12:23] VITALS: BP 129/60; TEMP 98.5; O2SAT 99
[2025-04-29] MEDS ORDERED: VANCOCIN 500 MG VIAL*** 500 MG in Sodium Chloride 100ML MINI-BAG PLUS 100 ML IV SCH (21:00)
[2025-04-30] MEDS ORDERED: PREMARIN PO SCH (10:00)
[2025-05-01] MEDS ORDERED: TROUGH DRUG LEVELS IJ ONE (20:30)
== END 2025-04-29 12:35 | disposition home or self-care (01) ==
LOC: ED 15:14 → MED SURG 17:25
PROVIDERS: ADMIT Internal Medicine; ATTEND Internal Medicine
DX: L03.116 Cellulitis of left lower limb (principal); N17.9 Acute kidney failure, unspecified; E87.6 Hypokalemia; R60.0 Localized edema; I10 Essential (primary) hypertension; G89.29 Other chronic pain; Z79.899 Other long term (current) drug therapy; Z86.11 Personal history of tuberculosis
CPT/HCPCS: 10060; 36415; 73590; 80053; 83036; 83605; 83735; 85025; 85027; 87040; 87070; 87077; 87186; 93268; 99285; G0378; Q3014